=== PATIENT | male | born 1985 | race Caucasian/White ===

== ENCOUNTER 2018-01-23 22:59 | Emergency (ER) | payer MEDICAID, SELFPAY ==
[2018-01-23 23:00] VITALS: BP 152/99; PULSE 104; RESP 20; TEMP 37.1; O2SAT 97; BMI 50.3
--- NOTE | 2018-01-23 23:47 | ED.VISSUMM ---
- ER Visit Summary Date of Service: 01/23/18 Chief Complaint: Laceration History of Present Illness: The patient is a 32 M with no primary care physician. Reports that this evening he tripped and fell hit his head on a brick around the flower bed at home. No loss of consciousness. He is on any blood thinners. His tetanus is up-to-date. He denies any neck, back, extremity, or other injuries. Physical Examination: Vitals: Stable. Afebrile. Head: 7 cm laceration to the right side of his scalp that extends from his hairline posteriorly. No active bleeding. Neck: No vertebral tenderness. Full ROM without difficulty. Cleared by NEXUS criteria. Back: No vertebral tenderness. General: A&O x 3. NAD. Cardiovascular exam: Regular rate and rhythm, no murmur, rub or gallop. Respiratory exam: Chest nontender. No crepitus. Clear to auscultation bilaterally. No wheezes or stridor. Abdominal exam: Soft, nontender, nondistended, normal bowel sounds. No pain in RUQ or LUQ specifically. No peritoneal signs. Extremity: Atraumatic. No pain with range of motion. Emergency Department Course and Treatment: Patient was treated with ibuprofen. His wound was anesthetized and repaired. He tolerated it well. Treatment Plan: Patient be discharged instructions to follow-up with Dr. Daniel Carrillo in 10-14 days for staple removal. Return to the emergency department for any worsening symptoms. Disposition: To home in improved and stable condition. Impression: 1. Scalp laceration, 7 cm, repaired. Procedure note: Wound was cleansed with chlorhexidine soap. Anesthetized with 1% lidocaine without epinephrine. Copiously irrigated with normal saline. Wound was explored there is no foreign material present. It was closed with 8 jag. The patient tolerated it well. This note was generated with [employer] dictation software. It may contain incorrect words, spelling, and punctuation that were not noted in review of the chart prior to signing ED Disposition - Plan for ED Patient: Disposition: Home or Assisted Living Chief Complaint: Laceration Instructions: ED Laceration Scalp Stitch Or Stap Prescriptions: Oxycodone HCl/Acetaminophen [Percocet 5/325] 1 tablet PO Q6H PRN PRN 3 Days #12 tablet PRN Reason: Pain Referrals: Daniel De Dios MD [STAFF PHYSICIAN] - 10-14 Days suture removal
[2018-01-23] MEDS: oxyCODONE 5 MG Tablet PO (23:57)
[2018-01-23] MEDS: Ibuprofen 400 MG Tablet 800 MG PO (23:58)
[2018-01-24 00:01] VITALS: PULSE 96; RESP 14; O2SAT 98
== END 2018-01-24 00:01 | disposition home or self-care (01) ==
PROVIDERS: Emergency Provider Emergency Medicine
DX: S01.01XA Laceration without foreign body of scalp, initial encounter (principal); Z72.0 Tobacco use; Z79.899 Other long term (current) drug therapy; W01.198A Fall on same level from slipping, tripping and stumbling with subsequent striking against other object, initial encounter; Y93.89 Activity, other specified; Y92.007 Garden or yard of unspecified non-institutional (private) residence as the place of occurrence of the external cause; Y99.8 Other external cause status
CPT/HCPCS: 12002; 99283

== ENCOUNTER → 2018-02-15 16:19 | Outpatient (CLI) | payer MEDICAID, SELFPAY ==
[2018-02-15 17:45] LABS: Absolute Neutrophil Count 7.5 X10^3/uL (2.0-7.7); Basophil# 0.03 X10^3/uL; Basophil% 0.3 % (0-1); Eosinophil# 0.14 X10^3/uL; Eosinophils% 1.2 % (0-5); Hematocrit 46.8 % (40-54); Hemoglobin 15.2 g/dl (13.0-16.5); Mean Corp Hgb Conc 32.5 g/gl (32-36); Mean Corpuscular Hgb 27.9 pg (27.0-32.0); Mean Corpuscular Volume 85.9 fL (80-94); Mean Platelet Vol. 11.2 fl (6.2-12.0); Monocyte# 0.85 X10^3/uL; Monocyte% 7.6 % (0-10); Neutrophil % 66.7 % (47-70); Platelet Count 242 K/mm3 (150-450); RBC Distribution Width CV 13.4 % (11.6-14.6); RBC Distribution Width SD 41.9 fl (35.1-43.9); Red Blood Count 5.45 M/mm3 (4.6-6.2); White Blood Count 11.2 K/mm3 (4.4-11.0)
[2018-02-15 17:54] LABS: POSITIVE COUNT NO; POSITIVE DIFFERENTIAL NO; POSITIVE MORPHOLOGY NO
[2018-02-15 18:04] LABS: Hemoglobin A1c 5.1 % (4.2-6.3)
[2018-02-15 18:05] LABS: ALB/GLOB Ratio 0.9 RATIO (0.9-2.4); AST(SGOT) 25 U/L (15-37); Alanine Aminotransfer ALT/SGPT 56 U/L (16-61); Albumin, Serum 3.8 g/dL (3.2-5.0); Alkaline Phosphatase 132 U/L (45-117); Anion Gap 10 (5-15); BUN 17 mg/dL (7-18); BUN/Creat Ratio 23.5 RATIO (10-20); Calcium,Total 8.7 mg/dL (8.5-10.1); Chloride 106 mmol/L (98-107); Cholesterol 185 mg/dL (200); Creatinine, Serum 0.72 mg/dL (0.70-1.30); EST Glomerular Filtration Rate 131 mL/min (>60); Est Glom Filt Rate - Afr Amer 159 mL/min (>60); Globulin 4.1 g/dL (2.2-4.2); Glucose 82 mg/dL (74-106); High Density Lipoprotein 33 mg/dL; Potassium 4.6 mmol/L (3.5-5.1); Protein, Total 7.9 g/dL (6.4-8.2); Sodium Level 141 mmol/L (136-145); Triglycerides 260 mg/dL; Very Low Density Lipoprotein 52 mg/dL (5-40)
== END ==
PROVIDERS: Family Provider Family Medicine; PCP Family Medicine; Visit Provider Family Medicine
DX: K21.9 Gastro-esophageal reflux disease without esophagitis (principal); E66.9 Obesity, unspecified; Z83.3 Family history of diabetes mellitus
CPT/HCPCS: 36415; 80053; 80061; 83036; 84443; 85025

== ENCOUNTER → 2018-03-22 14:32 | Outpatient (CLI) | payer MEDICAID, SELFPAY | PROVIDERS: Family Provider Family Medicine; PCP Family Medicine; Visit Provider Family Medicine | DX: R06.02 Shortness of breath (principal) | CPT/HCPCS: 71046 ==

== ENCOUNTER → 2018-03-29 06:50 | Outpatient (CLI) | payer MEDICAID, SELFPAY ==
--- NOTE | 2018-03-29 12:55 | PFT_ITS ---
INTRODUCTION: The patient is a 33-year-old male that presents for pulmonary function testing secondary to a diagnosis of shortness of breath. Respiratory therapy reports good patient effort. Bronchodilators were used during testing. INTERPRETATION: Forced expiration spirometry demonstrates no evidence of a large airways obstructive ventilatory defect. There was no significant response to aerosolized bronchodilators. Spirograms are of good quality and plateau normally. Body plethysmography was performed and reveals a decreased TLC to 4.0 L, 70% of predicted, indicative of a mild restrictive ventilatory defect. The ERV is significantly reduced which may be secondary to an underlying body habitus effect. Diffusing capacity by single breath CO is mildly reduced at 60 % of predicted. IMPRESSION: These pulmonary function studies demonstrate the presence of a mild restrictive ventilatory defect with a symmetric reduction in diffusing capacity and reduced ERV, which may be suggestive of an underlying body habitus effect. Clinical correlation is recommended.
== END ==
PROVIDERS: Family Provider Family Medicine; PCP Family Medicine; Visit Provider Family Medicine
DX: R06.02 Shortness of breath (principal)
CPT/HCPCS: 94060; 94726; 94729

== ENCOUNTER → 2018-12-14 | Outpatient (CLI) | payer MEDICAID, SELFPAY ==
--- NOTE | 2018-12-14 14:00 | LES_PTH ---
PATIENT: NAOMI AHUMADA LOC: [facility] U#:[id number] AGE/SX: 33/M ROOM: RE12/14/[address]: Dr. Kingston Goldberg MD : 1985 BED: DIS: 12/14/2018 SPEC #: [id number] RECD: 12/14/18 15:27 STATUS: EUGENIO SERGO #: [id number] SHAI: 12/14/18 14:[address]: Kingston Goldberg DEPT: SURGICAL PATHOLOGY RECD BY: Marlo Bui Tissues: Skin, NOS Procedures: Surgery Specimen Level IV HEADER OPERATION: Excision / mole removal PRE-OP DIAGNOSIS: Neoplasm TISSUE SUBMITTED: Neoplasm / mole removal MICROSCOPIC DIAGNOSIS Mole removal, not further specified, biopsy: Consistent with dermatofibroma. AM:maria elena 12/18/18 MICROSCOPIC DESCRIPTION Slides are reviewed. GROSS DESCRIPTION Received is one container labeled with the patient's name and not further designated. The specimen consists of one irregular fragment of valdez soft tissue that measures 0.6 x 0.5 x 0.2 cm. The specimen is bisected and totally submitted in one cassette. / AM:maria elena 12/15/18 TC:5 [facility]: [id number]
== END | disposition home or self-care (01) ==
PROVIDERS: Family Provider Family Medicine; PCP Family Medicine; Referring Provider Family Medicine; Visit Provider Family Medicine
DX: D48.9 Neoplasm of uncertain behavior, unspecified (principal)
CPT/HCPCS: 88304; 88305

== ENCOUNTER 2019-02-08 17:22 | Emergency (ER) | payer MEDICAID, SELFPAY ==
[2019-02-08 17:23] VITALS: BP 159/109; PULSE 90; RESP 16; TEMP 36.8; O2SAT 98; BMI 53.0
[2019-02-08 17:36] VITALS: BP 159/109; PULSE 90; RESP 18; TEMP 36.8; O2SAT 99
[2019-02-08] MEDS: oxyCODONE 5 MG Tablet PO (18:43)
--- NOTE | 2019-02-08 18:44 | ED.RN ---
PER DR. BARKSDALE SEPSIS SCREEN COMPLETED.
--- NOTE | 2019-02-08 18:47 | ED.VISSUMM ---
- ER Visit Summary Date of Service: 02/08/19 Chief Complaint: Left ear pain History of Present Illness: The patient is a 34 M presenting with left ear pain. Patient states this started earlier in the week. He was seen at urgent care on Tuesday and was started on Augmentin for ear infection. He was seen by Dr. Christopher in follow-up yesterday. He states he was advised to continue the Augmentin until complete and was given a course of amoxicillin to take when the Augmentin is finished. He has been taking ibuprofen at home. He complains of pain in his left ear. He denies fever. He has had drainage from his ear. He states he had drainage yesterday when he was seen by the ENT and they were able to suction the drainage. Physical Examination: Vitals are stable. Patient is afebrile. Alert no acute distress. HEENT exam pain with movement of the left tragus. White serous drainage in the left ear canal. Unable to visualize TM. No mastoid tenderness Neck is supple. No meningismus Lungs are clear and equal bilaterally. Heart is regular rate and rhythm. Extremities are unremarkable. Skin is warm and dry. Remainder of exam is unremarkable. Emergency Department Course and Treatment: Patient was given OxyIR. Discussed with Dr. Harper. Patient will be started on Ciprodex drops. He is given a prescription for Percocet. Culture was sent of otorrhea. Advised to follow-up with Dr. Chowdary. Advised return to ED for worsening complaints. Disposition: Discharge home Impression: Left otitis externa, otitis media This note was generated with [employer] dictation software. It may contain incorrect words, spelling, and punctuation that were not noted in review of the chart prior to signing ED Disposition - Plan for ED Patient: Instructions: RUPTURED TM, Infected (Adult) Prescriptions: Ciprofloxacin HCl/Dexameth [Ciprodex Otic Suspension] 4 drp OTIC (EAR) BID 7 Days #1 bottle Prescription Printed Oxycodone HCl/Acetaminophen [Percocet 5/325] 1 tab PO Q6H PRN PRN 3 Days #12 tab PRN Reason: Pain Prescription Printed Referrals: Korey Chowdary MD [STAFF PHYSICIAN] - Kingston Goldberg MD [Primary Care Provider] -
--- NOTE | 2019-02-08 19:32 | ED.DEP ---
ED Disposition - Plan for ED Patient: Instructions: RUPTURED TM, Infected (Adult) Prescriptions: Ciprofloxacin HCl/Dexameth [Ciprodex Otic Suspension] 4 drop OTIC BID 7 Days #1 bottle Oxycodone HCl/Acetaminophen [Percocet 5/325] 1 tablet PO Q6H PRN PRN 3 Days #12 tablet PRN Reason: Pain Referrals: Kingston Goldberg MD [Primary Care Provider] - Korey Chowdary MD [STAFF PHYSICIAN] -
[2019-02-08 20:04] VITALS: BP 148/78; PULSE 92; RESP 16; O2SAT 98
== END 2019-02-08 20:05 | disposition home or self-care (01) ==
LOC: ED 18:51
PROVIDERS: Emergency Provider Emergency Medicine; Family Provider Family Medicine; PCP Family Medicine
DX: H60.92 Unspecified otitis externa, left ear (principal); H66.92 Otitis media, unspecified, left ear; Z79.2 Long term (current) use of antibiotics; K21.9 Gastro-esophageal reflux disease without esophagitis; Z72.0 Tobacco use; Z79.899 Other long term (current) drug therapy
CPT/HCPCS: 87070; 87077; 87186; 87205; 99283

== ENCOUNTER 2019-03-23 12:40 | Outpatient (RCR) | payer MEDICAID, SELFPAY | END 2019-03-23 12:40 | disposition home or self-care (01) | LOC: PT 12:40 | PROVIDERS: Family Provider Family Medicine; PCP Family Medicine; Referring Provider Family Medicine; Visit Provider Family Medicine | DX: R69 Illness, unspecified (principal) ==

== ENCOUNTER 2019-04-03 13:03 | Outpatient (RCR) | payer MEDICAID, SELFPAY ==
--- NOTE | 2019-04-03 13:56 | HP.PTEVAL_ITS ---
Patient's Visit Information NAOMI AHUMADA is a 34 year old M referred to Physical Therapy by Kingston Goldberg MD with a diagnosis of CEREBRAL PALSY,CHRONIC ANKLE PAIN. Date of Evaluation: 04/03/19 Physical Therapist: Damián Connell, PT, Cert MDT, OCS - Visit Plan Frequency: 1 VISIT Plan: PT EVAL ONLY. RECOMMEND POWER W/C DUE TO UNABLE TO WALK SAFELY FOR SHORT DISTANCES < 20 ',POOR STRENGTH ROM BLE AND UE WITH WEAKNESS FROM ANKLE FRACTURE WITH FUSION RIGHT ANKLE AND CP,POOR ENDURANCE, UNSAFE TRANSFERS - Subjective Findings: This 34 y/o male presents to physical therapy with cerebral palsey ,chronic ankle pain for electric wheelchair. Patient has had chronic ankle pain with h/o right ankle fracture s/p fusion of ankle x3 last surgery about 18 months ago. Patient also has h/o left ankle fracture. Pateint has had CP since . Patient is unable to ambulate short distance 2-ft . Patient wiegths 290 # , ht 5'2 . Patient has pain ankle with walkin 8/10. Patient c/o parathesia in extremities. Patient lives in apartment. Patient requires assist with transfers in TUB . Patient needs assist LE dressing. Patient with weakness impaired moblity with gait will benifit from electric W/C.Patient current electric w/c is broke not safe. SOCIAL: [employer]ilfriend. VOCATION: disablity - Pain Bilateral Ankle Pain Intensity (Out of 10): 8 Bilateral Knee Pain Intensity (Out of 10): 3 Pain Intensity Range: 10 Bilateral Wrist Pain Intensity (Out of 10): 6 Pain Intensity Range: 10 Bilateral Shoulder Pain Intensity (Out of 10): 4 Pain Intensity Range: 10 - Objective POSTURE: posterior pelvic tilt,rounded shoulders. TRANSFERS: sit-stand mod no safe. BED MOBLITY: supine -sit mod assist. GAIT: ambulated few steps with fww. BALANCE: fair- with fww. AROM: supine knee flex 5-95 degrees ,hip flexion 85 degrees ,abd 20 degrees. TONE: spascitity LE. MMT: quads 3-/5 ,hip flex/abd 2/5,hams 3-/5,ankle R 0/5, L 3/5. BUE: AROM WFL. MMT: BUE 4-/5. FLEXABLITY: hams severe tight - Goals Goal 1:: RECOMMEND POWER W/C DUE TO IMPAIRED MOBLITY. Goal Time Frame: 1 VISIT - Rehabilitation Potential Physical Therapy Diagnosis: Patient has multile comorbities along with CP with decrease safe gait with limited distance painand strength ,transfers, decrease LE strength ,poor LE ROM and current electric w/c broke and is not safe for patient. Rehabilitation Potential: Poor - Anticipated Interventions Patient/Client Instruction: Educate patient on: Condition, Plan of Care For the Purpose of:: Other Other: POWER W/C Thank you for the opportunity to evaluate your patient. For Medicare and Medicare HMO plans, please review the plan of care and approve it. It will need to be FAXED BACK to us at [phone] for Medicare purposes. For Medicare only, by signing this I certify the plan of care. Please let me know if there are questions or concerns regarding this plan of care. Physician Signature: Date:
== END 2019-04-03 19:00 | disposition home or self-care (01) ==
LOC: PT 13:03
PROVIDERS: Family Provider Family Medicine; PCP Family Medicine; Visit Provider Family Medicine
DX: G80.9 Cerebral palsy, unspecified (principal); M25.579 Pain in unspecified ankle and joints of unspecified foot; G89.29 Other chronic pain
CPT/HCPCS: 97110

== ENCOUNTER → 2019-07-09 13:58 | Outpatient (CLI) | payer MEDICAID, SELFPAY | PROVIDERS: Family Provider Family Medicine; PCP Family Medicine; Referring Provider Nurse Practitioner Family; Visit Provider Nurse Practitioner Family | DX: Z00.00 Encounter for general adult medical examination without abnormal findings (principal) ==

== ENCOUNTER → 2019-08-16 | Outpatient (CLI) | payer MEDICAID, SELFPAY | END | disposition home or self-care (01) | LOC: LABSPEC 14:35 | PROVIDERS: PCP Family Medicine; Referring Provider Family Medicine; Visit Provider Family Medicine | DX: R19.7 Diarrhea, unspecified (principal) | CPT/HCPCS: 87177; 87209; 87493 ==

== ENCOUNTER 2020-03-03 13:15 | Emergency (ER) | payer MEDICAID, SELFPAY ==
[2020-03-03 13:16] VITALS: BP 151/95; PULSE 78; RESP 15; TEMP 36.7; O2SAT 95; BMI 51.2
--- NOTE | 2020-03-03 13:33 | RAD_ITS ---
STUDY: X-RAY - LEFT FOOT CLINICAL: Male, 35 years old. INCREASED LEFT FOOT PAIN. UNKNOWN CAUSE TECHNIQUE: 3 view(s) of the foot. COMPARISON: None. FINDINGS: Normal talus, calcaneus, and tarsal bones. Normal visualized subtalar, talonavicular, calcaneocuboid, tarsal and tarsometatarsal articulations. Normal metatarsi. There is pes planus. Normal metatarsophalangeal joint of the great toe. Normal tibial and fibular sesamoid bones. Normal interphalangeal joint of the great toe. Normal phalanges of the great toe. Normal second through fifth metatarsophalangeal joints. Normal interphalangeal joints and phalanges of the lesser toes. The soft tissue structures are unremarkable. RAD/Foot min 3 Views IMPRESSION: No demonstrated fracture or suspicious osseous lesion No significant arthrosis Pes planus Electronically Signed: Aaron Cardona MD at 15:05 EDT , Service support ,
[2020-03-03] MEDS: oxyCODONE 5 MG Tablet PO (14:17)
--- NOTE | 2020-03-03 14:27 | ED.DCSUM_ITS ---
- ER Visit Summary Date of Service: 03/03/20 Chief Complaint: Left foot pain History of Present Illness: The patient is a [address] Barboza. His sweet pickled fruit maker is Dr. Hameed in [place]. 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 He is supposed to have a tendon release from his left Achilles but has not been scheduled at this time. Patient reports that he has chronic left foot and ankle pain that increased 2 days ago. States that the stabbing pain is 1010 at worst 9-10 currently. Is worsened by twisting or weightbearing. Is relieved by ibuprofen. He denies any numbness or weakness. He denies any fall or MVA. However, he reports that he has been more active than usual because he is moving. Physical Examination: Vitals: Stable. Afebrile. General: Well-nourished and well-developed. Head: Normocephalic atraumatic. Neck: Supple, no lymphadenopathy. No JVD. Nontender. Cardiovascular: Regular rate and rhythm. No murmurs. Respiratory: No respiratory distress. Clear to auscultation bilaterally. Abdominal: Soft, nontender, nondistended, normal bowel sounds. No guarding, rebound, or peritoneal signs. Back: Nontender. Extremities: Moderate tenderness palpation to the anterior surface of his right foot just distal to the ankle crease itself. He is neurovascular intact distal to this. There is no contusion or soft tissue swelling no edema. Skin: Normal color, no rash. Neurologic: Alert and oriented ?3. Cranial nerves II through XII are intact. Normal strength and sensation. Psych: Normal affect. Test Results: Left foot x-ray shows chronic changes. Emergency Department Course and Treatment: An OARRS report was obtained which was negative. The patient was given oxycodone p.o. Treatment Plan: Patient will be discharged with a prescription for 12 Percocet and instructed to follow-up with his sweet pickled fruit maker soon as possible. Return to the emergency department for any worsening symptoms. Disposition: To home in improved and stable condition. Impression: 1. Left foot pain, acute on chronic. This note was generated with [employer] software. It may contain incorrect words, spelling, and punctuation that were not noted in review of the chart prior to signing ED Disposition - Plan for ED Patient: Disposition: Home or Assisted Living Instructions: Treating Arthritis in the Foot Prescriptions: Oxycodone HCl/Acetaminophen [Percocet 5/325] 1 tab PO Q6H PRN PRN 3 Days #12 tab PRN Reason: Pain Prescription Printed Referrals: Kingston Goldberg MD [Primary Care Provider] - Additional Instructions: Follow-up with your sweet pickled fruit maker as soon as possible.
[2020-03-03 16:01] VITALS: PULSE 79; RESP 15; O2SAT 99
== END 2020-03-03 16:02 | disposition home or self-care (01) ==
LOC: ED 13:55
PROVIDERS: Emergency Provider Emergency Medicine; PCP Family Medicine
DX: M79.672 Pain in left foot (principal); G89.29 Other chronic pain; G80.9 Cerebral palsy, unspecified; Z72.0 Tobacco use
CPT/HCPCS: 73630; 99283

== ENCOUNTER → 2020-03-31 | Outpatient (CLI) | payer MEDICAID, SELFPAY ==
[2020-03-03 13:16] VITALS: BMI 51.2
== END | disposition home or self-care (01) ==
LOC: SL 21:52
PROVIDERS: PCP Family Medicine; Visit Provider Family Medicine
DX: G47.30 Sleep apnea, unspecified (principal)
CPT/HCPCS: 95810

== ENCOUNTER → 2020-04-01 | Outpatient (CLI) | payer MEDICAID, SELFPAY ==
[2020-03-03 13:16] VITALS: BMI 51.2
[2020-04-01 17:43] LABS: Absolute Lymphocyte Count 2.03 X10^3/uL (0.83-4.51); Absolute Neutrophil Count 6.1 X10^3/uL (2.0-7.7); Basophil# 0.04 X10^3/uL; Basophil% 0.4 % (0-1); Eosinophil# 0.11 X10^3/uL; Eosinophils% 1.2 % (0-5); Hematocrit 46.1 % (40-54); Hemoglobin 15.2 g/dL (13.0-16.5); Lymphocyte # 2.03 X10^3/ul (4.0); Lymphocyte % 22.6 % (19-41); Mean Corpuscular Hgb 27.9 pg (27.0-32.0); Mean Corpuscular Volume 84.6 fL (80-94); Mean Platelet Vol. 11.5 fl (6.2-12.0); Monocyte# 0.71 X10^3/uL; Monocyte% 7.9 % (0-10); NRBC Flagged by Analyzer 0 % (0-5); Neutrophil # 6.06 X10^3/uL (2.7-7.7); Neutrophil % 67.6 % (47-70); Platelet Count 264 K/mm3 (150-450); RBC Distribution Width CV 13.1 % (11.6-14.6); Red Blood Count 5.45 M/mm3 (4.6-6.2)
[2020-04-01 18:07] LABS: ALB/GLOB Ratio 0.9 RATIO (0.9-2.4); AST(SGOT) 24 U/L (15-37); Alanine Aminotransfer ALT/SGPT 54 U/L (16-61); Albumin, Serum 3.9 g/dL (3.2-5.0); Alkaline Phosphatase 104 U/L (45-117); Anion Gap 8 (5-15); BUN 12 mg/dL (7-18); Calcium,Total 9.1 mg/dL (8.5-10.1); Chloride 107 mmol/L (98-107); Cholesterol 214 mg/dL (200); EST Glomerular Filtration Rate 115 mL/min (>60); Est Glom Filt Rate - Afr Amer 139 mL/min (>60); Globulin 4.4 g/dL (2.2-4.2); Glucose 86 mg/dL (74-106); High Density Lipoprotein 30 mg/dL; Potassium 4.5 mmol/L (3.5-5.1); Protein, Total 8.3 g/dL (6.4-8.2); Sodium Level 139 mmol/L (136-145); Triglycerides 234 mg/dL; Very Low Density Lipoprotein 47 mg/dL (5-40)
== END | disposition home or self-care (01) ==
LOC: MFPLAB 15:10
PROVIDERS: PCP Family Medicine; Referring Provider Family Medicine; Visit Provider Family Medicine
DX: E66.01 Morbid (severe) obesity due to excess calories (principal); Z72.0 Tobacco use
CPT/HCPCS: 36415; 80053; 80061; 85025

== ENCOUNTER 2020-04-22 12:20 | Emergency (ER) | payer MEDICAID, SELFPAY ==
[2020-04-14 07:49] VITALS: BMI 51.2
[2020-04-22 12:21] VITALS: BP 123/40; PULSE 84; RESP 20; TEMP 36.4; O2SAT 98; BMI 53.0
--- NOTE | 2020-04-22 12:51 | ED.VISSUMM ---
- ER Visit Summary Date of Service: 04/22/20 Chief Complaint: Left ankle pain History of Present Illness: The patient is a 35 M who presents with left ankle pain that became worse today. Patient has a history of cerebral palsy. Patient states the pain has gradually gotten worse. Patient denies any trauma or injury. Patient states the pain is worse with ambulation. Patient describes the pain as burning but sharp at times. Patient denies any paresthesias or weakness. Patient states he saw his orthopedic surgeon who did x-rays and told him he needed to see a joint specialist and have his ankle replaced. Physical Examination: Vital signs are stable. Patient is afebrile. Patient is in no acute distress. Musculoskeletal exam reveals tenderness over the medial aspect of the left ankle. There is no ecchymosis or deformity. There is no edema noted. There is no tenderness over the proximal fibula. There is no tenderness over the fifth metatarsal. Range of motion was limited in all motion secondary to pain. Pedal pulses are equal bilaterally. Sensation was intact to light touch in all digits. Capillary refill was less than 2 seconds in all digits. Emergency Department Course and Treatment: Patient was given injection of morphine here. Patient was given a prescription for short course of Percocet. Patient was instructed to follow-up with his primary care physician and orthopedic surgeon. Patient was also given a walking boot. Patient was instructed to ice and elevate the left ankle. Patient states he has been using Voltaren cream with minimal relief. Patient was instructed to continue using the Voltaren cream. Patient understood and was agreeable with the plan. All questions were answered. Disposition: Discharge home Impression: Left ankle pain This note was generated with [employer] dictation software. It may contain incorrect words, spelling, and punctuation that were not noted in review of the chart prior to signing ED Disposition - Plan for ED Patient: Disposition: Home or Assisted Living Diagnosis: Left ankle pain Instructions: ED JOINT PAIN Prescriptions: Oxycodone HCl/Acetaminophen [Percocet 5/325] 1 tab PO Q6H PRN PRN 3 Days #12 tab PRN Reason: Pain Prescription Printed Referrals: Kingston Goldberg MD [Primary Care Provider] - 3-5 Days Joseph Bowers MD [STAFF PHYSICIAN] - 5-7 Days
[2020-04-22] MEDS: Morphine 4 MG/ML Syringe IM (12:53)
[2020-04-22 13:17] VITALS: BP 140/113; PULSE 79; RESP 16
== END 2020-04-22 13:20 | disposition home or self-care (01) ==
LOC: ED 12:53
PROVIDERS: Emergency Provider Emergency Medicine; PCP Family Medicine
DX: M25.572 Pain in left ankle and joints of left foot (principal); G80.9 Cerebral palsy, unspecified; K21.9 Gastro-esophageal reflux disease without esophagitis; Z72.0 Tobacco use
CPT/HCPCS: 96372; 99283

== ENCOUNTER 2020-08-05 06:44 | Day surgery (SDC) | payer MEDICAID, SELFPAY ==
[2020-07-24 09:20] VITALS: BMI 55.5
[2020-07-28 12:41] VITALS: BMI 53.0
[2020-08-05] VITALS (7 sets, daily range): BP systolic 111–125; BP diastolic 65–91; PULSE 67–82; RESP 16–18; TEMP 36.5–37.1; O2SAT 96–98; BMI 56.2
--- NOTE | 2020-08-05 | IMM_PTH ---
PATIENT: NAOMI AHUMADA LOC: [facility] U#:[id number] AGE/SX: 35/M ROOM: RE08/05/[address]: Dr. Ilya Jeffers MD : 1985 BED: DIS: 08/05/2020 SPEC #: [id number] RECD: 08/06/20 13:55 STATUS: EUGENIO REArvind #: [id number] SHAI: 08/05/20 00:[address]: Ilya Jeffers DEPT: IMMUNOHISTOCHEMISTRY RECD BY: Jocelyne Hill ENTERED: 08/06/20 13:55 SP TYPE: IMMUNO OTHR DR: Dr. Kingston Goldberg MD Tissues: A - Stomach, NOS Procedures: H Pylori (initial) PHYSICIAN & INSTITUTION [place] [id number] SPECIMEN INFORMATION: Tissue Source: A - Antral biopsy Clinical Info: GERD Specimen Number: [id number] CPT code: 84990 METHODOLOGY: Deparaffinized sections of prefer/formalin-fixed tissue or PAP/DQ stained slides are incubated with monoclonal/polyclonal antibodies/oligonucleotide probes. Localization is made via biotin free immunoperoxidase method. Appropriate controls are performed and reacted as expected. Results on target cell population are indicated in the following table: RESULTS: ANTIBODY / CLONE RESULT Block A H Pylori (polyclonal) negative These tests were developed and their performance characteristics determined by [facility]. They may not have been cleared or approved by the U.S. Food and Drug Administration. The FDA has determined that such clearance or approval is not necessary. INTERPRETATION: A. Antral biopsy: Negative for Helicobacter pylori organisms. ENID:maria elena 08/07/2020
--- NOTE | 2020-08-05 07:30 | HP.PCM_ITS ---
Problem List (1) GERD (gastroesophageal reflux disease) Status: Acute Qualifiers: History of Present Illness Date of Admission: 08/05/20 The patient is a 35 year old M who presents today for a esophagogastroduodenoscopy Intake Visit Reasons: PHONE VISIT/ EGD, GERD Chief Complaint: GERD Recruitment Internship Required: No Is patient in pain?: No Allergies No Known Allergies Allergy (Verified 07/24/20 09:20) Medications Ibuprofen [Motrin] 800 mg PO TID 02/08/19 [History Confirmed 07/24/20] Omeprazole 20 mg PO DAILY 02/08/19 [History Confirmed 07/24/20] Propranolol HCl [Propranolol HCl ER] 80 mg PO DAILY 02/08/19 [History Confirmed 07/24/20] Sertraline HCl 100 mg PO DAILY 02/08/19 [History Confirmed 07/24/20] lactobacillus combination no.8 3 billion cell capsule 3,000 mmu cells PO DAILY 07/24/20 [History Confirmed 07/24/20] PFSH Medical History Restrictive lung disease (Acute) Anxiety and depression (Acute) GERD (gastroesophageal reflux disease) (Acute) Hemorrhoid (Acute) Irritable bowel syndrome (IBS) (Acute) Sleep apnea (Acute) Surgical History History of ankle fusion (Acute) History of tonsillectomy and adenoidectomy (Acute) History of bilateral carpal tunnel release (Acute) History of tympanoplasty (Acute) History of eye surgery (Acute) History of heart valve repair (Acute) History of esophagogastroduodenoscopy (EGD) (Acute ~2013) History of colonoscopy (Acute ~2019) Family History Mother Cancer kidney Hypertension Diabetes Father Diabetes Hypertension Social History (Updated 07/24/20 @ 09:[address] Ilya Jeffers MD) Smoking Status: Current some day smoker HPI HPI Chief Complaint: GERD Details: Patient was informed that this visit will be billed to patient. This visit was conducted during - pandemic. NAOMI AHUMADA, is a 35 M who was contacted via telephone for consultation regarding intractable gastroesophageal reflux disease. The patient was at home on his telephone and I was in the office on [employer]. He is referred by Dr Kingston Goldberg. 35-year-old gentleman. He is recently had increased trouble with heartburn reflux disease. He is currently being managed with omeprazole therapy and he has been on that for an extended period of time. There were hopes that that could be decreased. He does have chronic anxiety. He is on appropriate medication. He does continue to smoke cigarettes. He is morbidly obese with a BMI of 55.5. He is just recently undergone a sleep apnea study with results pending. He states that he has had a remote previous upper endoscopy without complication. He denies bright red blood per rectum or melena. Denies any current abdominal pain. There is no evidence on his laboratory to suggest anemia. ROS Const Constitutional: No anorexia, body ache, chills, excessive sweating, fatigue, fever(s), frequent falls, headache(s), decreased energy, malaise, night sweats, snoring, weakness, weight change, sleep problems, abnormal sleep pattern, change in appetite or other Eyes Eyes: No blurry vision, change in vision, double vision, discharge, dry eyes, bulging eyes, floaters, visual disturbances, eye pain, light sensitivity, spots in vision, tunnel vision or other ENT ENT: No abnormal hearing, ear pain, ear discharge, ear pressure, hearing loss, tinnitus, dizziness/vertigo, balance problems, nosebleed/epistaxis, nasal congestion, nasal obstruction, nose pain, sinus pressure, sinus pain, nasal discharge, post nasal drip, headache(s), facial pain, dental pain, dry mouth, difficulty swallowing, bad breath, hoarseness, lip swelling, mouth lesions, mouth pain, neck pain, sore throat, tongue swelling, throat swelling or other Resp Respiratory: Positive for other (asthma, sleep apnea ); no cough, change in phlegm color, chest congestion, excessive phlegm production, hemoptysis, pain on inspiration, shortness of breath, pain with cough, snoring, stridor or wheezing Cardio Cardiology: No chest pain at rest, chest pain with exertion, leg pain with exertion, excessive sweating, shortness of breath, dyspnea on exertion, generalized swelling, irregular heart rhythm, lightheadedness, orthopnea, radiating jaw, neck or arm pain, fast heart rate, slow heart rate, palpitations or other Gastro GI: Positive for diarrhea, heartburn and other (ibs); no abdominal pain, belching, bloating, change in bowel habits, change in stool character, coffee ground emesis, constipation, cramping, difficulty swallowing, feeling full early, excessive flatus, incontinent of stools, Vomiting blood/hematemesis, blood in stool, loose stools, Black,tarry stools, nausea/dyspepsia, pain with swallowing or vomiting Musc Musculoskeletal: No abnormal walking, neck pain, numbness or tingling Skin Skin: No itching Neuro Neurology: No abnormal walking, abnormal hearing, abnormal movements, abnormal speech, behavioral changes, confusion, unsteady gait/balance, dizziness, weakness, frequent falls, headache(s), lack of coordination, loss of vision, memory loss, numbness, tingling, visual disturbances, restless legs, fainting, tremor(s) or other Psych Psychiatric: No abnormal sleep pattern, No lack of enjoyment, Positive for anxiety, No behavioral changes, No change in appetite, No confusion, Positive for depression, No difficulty concentrating, No hopelessness, No irritability, No memory loss, No mood swings, No panic attacks, No paranoia, No Thoughts of harming yourself/Others, No hallucinations, No other Endo Endocrine: No excessive sweating, fatigue or other Aller/Imm Allergy/Immunologic: No food intolerance, itchy eyes, lip swelling, seasonal allergy symptoms, throat swelling, tongue swelling, hives, wheezing or other [place]/Lymp Hematologic/Lymphatic: No easy bleeding, easy bruising, enlarged lymph nodes or other Exam Details: Details:: Exam was limited due to phone visit with no video. Quality Reporting Medication Reconciliation ([facility] 68) ibuprofen 800 mg PO TID lactobacillus combination no.8 (Adult Probiotic) 3,000 mmu cells PO DAILY omeprazole 20 mg PO DAILY propranolol ER 80 mg PO DAILY sertraline 100 mg PO DAILY Tobacco Screening ([facility] 138) Smoking Status: Current some day smoker Assessment & Plan Problems 1. Gastroesophageal reflux disease, unspecified whether esophagitis present K21.9 Plan I had an extensive discussion with the patient regarding treatment options. I have strongly encouraged the patient to cease tobacco. We have recommended head of bed elevation. I recommended not eating within 2 hours of going to bed. Advised avoiding alcohol. I reviewed his medication noting that he is on ibuprofen therapy. He claims this is for arthritis. I advised him that that can be harsh on the stomach he might consider converting to acetaminophen if feasible. I propose for him a esophagogastroduodenoscopy with possible biopsy or polypectomy as indicated. He is aware of the technique, benefit, risk, alternatives. He has sleep apnea and morbid obesity. I anticipate monitored anesthesia care to assist. He has had an opportunity to ask and have questions answered. If severe reflux findings are identified then 1 recommendation for the patient would be to consider bariatric surgery for a combined bariatric procedure and reflux procedure. Appreciate the opportunity of assisting with her surgical care Copy: Dr Kingston Jeffers M.D., F.A.C.S. Orders Orders: EGD Today Coding Level of Care Code Level 2 Telephone Diagnoses Gastroesophageal reflux disease, unspecified whether esophagitis present K21.9 ??Esophagitis presence: esophagitis presence not specified Past Medical History Medical History: Medical History (Last Reviewed 07/28/20 @ 13:02 by Simi Chu HIGH SCHOOL VICE PRINCIPAL, HIGH SCHOOL VICE PRINCIPAL-C) Restrictive lung disease (Acute) J98.4 Anxiety and depression (Acute) F41.9, F32.9 GERD (gastroesophageal reflux disease) (Acute) K21.9 Hemorrhoid K64.9 Irritable bowel syndrome (IBS) K58.9 Sleep apnea G47.30 Allergies No Known Allergies Allergy (Verified 07/31/20 12:05) Home Medications: Ambulatory Orders Medication Instructions Recorded Ibuprofen [Motrin] 800 mg PO TID 02/08/19 Omeprazole 20 mg PO DAILY 02/08/19 Propranolol HCl [Propranolol HCl 100 mg PO DAILY 02/08/19 ER] Sertraline HCl 150 mg PO DAILY 02/08/19 lactobacillus combination no.8 3 3,000 mmu cells PO DAILY 07/24/20 billion cell capsule Surgical History: Surgical History (Last Reviewed 07/28/20 @ 13:02 by Simi Chu HIGH SCHOOL VICE PRINCIPAL, HIGH SCHOOL VICE PRINCIPAL-C) History of ankle fusion (Acute) Z98.1 History of tonsillectomy and adenoidectomy (Acute) Z98.890 History of bilateral carpal tunnel release (Acute) Z98.890 History of tympanoplasty (Acute) Z98.890 History of eye surgery (Acute) Z98.890 History of heart valve repair (Acute) Z98.890 History of esophagogastroduodenoscopy (EGD) (Acute) Onset Date: ~2013 Z98.890 History of colonoscopy Onset Date: ~2018 Z98.890 Smoking Status: Current every day smoker Tobacco Use: Cigarettes VTE Information - Inpt Only VTE Present on Admission: No - Physical Exam Vitals/I&O's: Vital Signs Temp Pulse Resp BP Pulse Ox 98.7 F 67 16 125/68 H 97 08/05/20 07:03 08/05/20 07:03 08/05/20 07:03 08/05/20 07:03 08/05/20 07:03 Oxygen Delivery Method Room Air Weight: 307 lb 12.245 oz Body Mass Index (BMI) 56.2 General: Alert, Oriented x3, Cooperative, No apparent distress HEENT: Atraumatic Oral: Moist Mucosa Lungs: Clear to auscultation, Normal air movement Cardiovascular: Regular rate, Regular Rhythm Abdomen: Soft, Non Tender Psych/Mental Status: Normal Affect Microbiology Past 72 Hours 08/04/20 11:33 Interface Orders SARS-CoV-2 Antigen (Rapid) - Final Assessment/Plan All Active Problems (Last Reviewed 07/28/20 @ 13:02 by Simi Chu HIGH SCHOOL VICE PRINCIPAL, HIGH SCHOOL VICE PRINCIPAL- C) History of ankle fusion (Acute) History of tonsillectomy and adenoidectomy (Acute) History of bilateral carpal tunnel release (Acute) History of tympanoplasty (Acute) History of eye surgery (Acute) History of heart valve repair (Acute) Restrictive lung disease (Acute) Anxiety and depression (Acute) GERD (gastroesophageal reflux disease) (Acute) History of esophagogastroduodenoscopy (EGD) (Acute ~2013) MOOK (obstructive sleep apnea) (Acute) 35-year-old gentleman with gastroesophageal reflux disease. Plan to proceed with a esophagogastroduodenoscopy with possible biopsy or polypectomy as indicated. The patient is aware of the technique, benefit, risk, alternatives. He has had an opportunity to ask and have questions answered. We will proceed as noted. Ilya Jeffers M.D., F.A.C.S. Procedure Criteria Procedure Type: Elective COVID Risk Discussion: The surgeon/proceduralist and patient have discussed in detail the risk of exposure to and/or potential harm posed by the COVID-19 virus with having a surg melquiades/procedure at this time versus the risk of delaying the surgery/procedure. It is not possible to know either the risk of delaying the surgery or procedure or chance of getting an infection with perfect accuracy, but a joint decision was made between the patient and the surgeon/proceduralist to proceed at this time with the scheduled surgery/procedure as indicated on the consent form.
--- NOTE | 2020-08-05 07:45 | EGD_PTH ---
PATIENT: NAOMI AHUMADA LOC: EN U#:[id number] AGE/SX: 35/M ROOM: RE08/05/[address]: Dr. Ilya Jeffers MD : 1985 BED: DIS: 08/05/2020 SPEC #: [id number] RECD: 08/05/20 12:01 STATUS: EUGENIO SERGO #: [id number] SHAI: 08/05/20 07:[address]: Ilya Jeffers DEPT: SURGICAL PATHOLOGY RECD BY: Sarah Decker ENTERED: 08/05/20 12:46 SP TYPE: EGD BIOPSY TC DR: Dr. Kingston Goldberg MD Tissues: A - Gastric mucous membrane B - Esophagus, NOS Procedures: Special Stain Group II Surgery Specimen Level IV Alcian Blue/PAS (control) HEADER OPERATION: EGD ([facility] – [place] PRE-OP DIAGNOSIS: GERD TISSUE SUBMITTED: A - Antral biopsy, B - Distal esophagus biopsy MICROSCOPIC DIAGNOSIS A. Antral biopsy: Mild gastritis. See microscopic description. B. Distal esophagus, biopsy: Fragments of gastroesophageal mucosa with mild chronic inflammation. Intestinal metaplasia (goblet cell metaplasia) not identified. See comment. ENID:maria elena 08/06/2020 COMMENT B. Alcian blue/PAS stain with matched control is used in the evaluation of the specimen. MICROSCOPIC DESCRIPTION Slides are reviewed. A. The specimen shows fragments of gastric mucosa with chronic inflammatory cell infiltrates in the lamina propria consisting of lymphocytes and plasma cells, consistent with mild chronic gastritis. GROSS DESCRIPTION A - Received in fixative is one container labeled with the patient's name and designated antral biopsy. The specimen consists of one irregular fragment of light valdez soft tissue that measures 0.3 x 0.3 x 0.1 cm. The specimen is totally submitted in one cassette. B - Received in fixative is one container labeled with the patient's name and designated distal esophagus biopsy. The specimen consists of multiple irregular fragments of light valdez soft tissue that in aggregate measure 0.6 x 0.4 x 0.1 cm. The specimen is totally submitted in one cassette. / ENID:maria elena 08/05/20 TC:3 CPT: 70923 x2, [id number]
--- NOTE | 2020-08-05 07:57 | OP.CCLET_ITS ---
08/05/2020 Kingston Goldberg [address] [place] [address] Re : Upper GI endoscopy procedure for Haile Santoro Dear Dr. Goldberg This procedure was performed on Wednesday, August 05, 2020. My impressions and recommendations are as follows: Impressions : - Reflux esophagitis. Biopsied. - Small hiatal hernia. - Erythematous mucosa in the antrum. Biopsied. - Normal examined duodenum. Recommendations : - Await pathology results. - Discharge patient to home. - Resume previous diet. - Continue present medications. - Telephone my office for pathology results in 1 week. Treat medically. Consider combined Bariatric/reflux procedure if symptoms escalate My findings are described in the full procedure note, which is enclosed. If I can be of further assistance, please feel free to contact me at Doctor phone number(s): Work: . Sincerely, Ilya Jeffers MD 08/05/2020 7:57:13 AM This report has been signed electronically.
--- NOTE | 2020-08-05 07:57 | OP.EGD_ITS ---
Patient Name: Haile Santoro Procedure Date: 08/05/2020 7:27 AM Date of : 1985 Age: 35 Procedure: Upper GI endoscopy Indications: Suspected gastro-esophageal reflux disease Providers: Ilya Jeffers MD Referring MD: Kingston Goldberg Medicines: See the Anesthesia note for documentation of the administered medications Complications: No immediate complications. Procedure: Pre-Anesthesia Assessment: - Prior to the procedure, a History and Physical was performed, and patient medications and allergies were reviewed. The patient's tolerance of previous anesthesia was also reviewed. The risks and benefits of the procedure and the sedation options and risks were discussed with the patient. All questions were answered, and informed consent was obtained. Prior Anticoagulants: The patient has taken no previous anticoagulant or antiplatelet agents. ASA Grade Assessment: III - A patient with severe systemic disease. After reviewing the risks and benefits, the patient was deemed in satisfactory condition to undergo the procedure. After obtaining informed consent, the endoscope was passed under direct vision. Throughout the procedure, the patient's blood pressure, pulse, and oxygen saturations were monitored continuously. The gastroscope was introduced through the mouth, and advanced to the second part of duodenum. The upper GI endoscopy was accomplished without difficulty. The patient tolerated the procedure well. Scope In: 7:46:52 AM Scope Out: 7:52:28 AM Total Procedure Duration Time 0 hours 5 minutes 36 seconds Findings: Esophagitis with no bleeding was found 40 cm from the incisors. Biopsies were taken with a cold forceps for histology. A small hiatal hernia was present. Diffuse mildly erythematous mucosa without bleeding was found in the gastric antrum. Biopsies were taken with a cold forceps for histology. The examined duodenum was normal. Impression: - Reflux esophagitis. Biopsied. - Small hiatal hernia. - Erythematous mucosa in the antrum. Biopsied. - Normal examined duodenum. Recommendation: - Await pathology results. - Discharge patient to home. - Resume previous diet. - Continue present medications. - Telephone my office for pathology results in 1 week. Treat medically. Consider combined Bariatric/reflux procedure if symptoms escalate Procedure Code(s): --- Professional --- 45469, Esophagogastroduodenoscopy, flexible, transoral; with biopsy, single or multiple Diagnosis Code(s): --- Professional --- K21.0, Gastro-esophageal reflux disease with esophagitis K44.9, Diaphragmatic hernia without obstruction or gangrene K31.89, Other diseases of stomach and duodenum CPT copyright 2017 [employer]. All rights reserved. The codes documented in this report are preliminary and upon industrial safety engineer review may be revised to meet current compliance requirements. Ilya Jeffers MD 08/05/2020 7:57:13 AM This report has been signed electronically. Number of Addenda: 0 Note Initiated On: 08/05/2020 7:27 AM
[2020-08-05] MEDS: Lactated Ringers 1,000 ML 100 ML IV (08:07)
== END 2020-08-05 08:44 | disposition home or self-care (01) ==
LOC: EN 06:45 → AC 06:45
PROVIDERS: PCP Family Medicine; Referring Provider Family Medicine; Visit Provider Surgery
PROC: 0DJ08ZZ Inspection of Upper Intestinal Tract, Via Natural or Artificial Opening Endoscopic (ICD-10-PCS; CPT 43235; principal; 2020-08-05 07:40)
DX: K29.70 Gastritis, unspecified, without bleeding (principal); K44.9 Diaphragmatic hernia without obstruction or gangrene; K21.00 Gastro-esophageal reflux disease with esophagitis, without bleeding; F41.9 Anxiety disorder, unspecified; F32.9 Major depressive disorder, single episode, unspecified; F17.210 Nicotine dependence, cigarettes, uncomplicated; G47.30 Sleep apnea, unspecified; E66.01 Morbid (severe) obesity due to excess calories; Z68.43 Body mass index [BMI] 50.0-59.9, adult; Z20.822 Contact with and (suspected) exposure to COVID-19; Z79.899 Other long term (current) drug therapy
CPT/HCPCS: 43239; 87426; 88305; 88313; 88342; C9803; J7120; J2405

== ENCOUNTER → 2020-09-10 19:47 | Outpatient (CLI) | payer MEDICAID, SELFPAY ==
[2020-08-05 07:03] VITALS: BMI 56.2
== END ==
PROVIDERS: PCP Family Medicine; Visit Provider Nurse Practitioner Acute Care
DX: G47.33 Obstructive sleep apnea (adult) (pediatric) (principal)
CPT/HCPCS: 95811

== ENCOUNTER 2021-06-08 11:30 | Outpatient (RCR) | payer MEDICAID, SELFPAY ==
--- NOTE | 2021-04-15 16:01 | HP.PTEVAL_ITS ---
Patient's Visit Information NAOMI AHUMADA is a 36 year old M referred to Physical Therapy by Dr. Fernanda Marti MD with a diagnosis of LUMBAR STRAIN. Date of Evaluation: 04/15/21 Physical Therapist: Damián Connell, PT, Cert MDT, OCS - Visit Plan Frequency: 2x /Week Duration: 4 Weeks Plan: PATIENT HAS CP AND AT W/C LEVLEL BUT CAN WALK MIN DISTANCES WITH FWW. PT INTERVENTIONS POSTURAL EX'S,DLS , LE FLEXABLITY AND HEP - Subjective This 36 y/o male presents to physical therapy with low back pain. This patient is W/C level with h/o cerebral palsy. Patient has thoracic-lumbar pain 1 month. Patient went to ER and CTSCAN and Toradol. Seen Family DR recommended PT. Aggravating factors walking and standing min distance < 5mins and laying down. Alleviating sitting with good posture. Pain was insidious onset without injury. Patient pain affects sleeping. Denies paresthesia/tingling .Bowel/bladder - Coughing/sneezing -. Patient able to transfer in/out truck ,able get in/of of bed. Patient goal to decrease pain. Walking is limited due to severity of back pain. SOCAIL: . VOCATION: disablity - Pain Bilateral Back Pain Intensity (Out of 10): 3 Pain Intensity Range: 10 Comment: thoracic ,lumbar - Objective POSTURE: rounded shoulders ,forward. PALAPTION: tender paraspinals thoracic /lumbar. TRANSFERS: MOD I. GAIT: Ambulate with marked forward posture 5 ft. LUMBAR ROM: severe loss with extension, flexion mod loss with decrease curve reversal. MMT: BUE 4/5,shoulders 4-/5,quads 3-/4,hams 2/5,hip 2/5. FLEXABLITY: hamstrings mod/severe tight. HIP ROM: POOR PROM - Special Tests L/S Slump test left side: Negative L/S Slump test right side: Negative L/S Left Straight Leg Raise: Negative L/S Right Straight Leg Raise: Negative - Balance/Special Test Scores Oswestry Low Back Score: 36 - Goals Goal 1:: Patient to be I with HEP to manage pain. Goal Time Frame: 4-6 Weeks Goal 2:: Patient to demonstrate 50% improvement with decrease back pain. Goal Time Frame: 4-6 Weeks Goal 3:: Patient to improve gait for transfers and maximize functional I with less pain. Goal Time Frame: 4-6 Weeks Goal 4:: Patient to improve back owestry score by 5 points to improve QOL. Goal Time Frame: 4-6 Weeks - Rehabilitation Potential Physical Therapy Diagnosis: This patient has LBP along with comorbities of CP ankle ankle fusion with thoracic/lumbar pain impacts ability to function with min gait and transfers in/out of truck and bed mobility thus will benefit from skilled PT Rehabilitation Potential: Fair - Anticipated Interventions Patient/Client Instruction: Educate patient on: Condition, Plan of Care For the Purpose of:: To decrease pain, To increase ROM, To improve muscle performance and motor function, To improve ability to perform ADL's, To increase tolerance to activity/condition/position, To improve performance and independence with ADL's, To improve ability of physical actions for home/community/work/leisure, To improve health of tissue, To decrease soft tissue restriction, To increase flexibility/ROM Therapeutic Exercise to Include: Strength training, Endurance training, Postural training, Flexibilty training For the Purpose of:: To decrease pain, To increase ROM, To improve muscle performance and motor function, To improve ability to perform ADL's, To increase tolerance to activity/condition/position, To improve ability of physical actions for home/community/work/leisure, To improve health of tissue, To decrease soft tissue restriction, To increase flexibility/ROM Thank you for the opportunity to evaluate your patient. For Medicare and Medicare HMO plans, please review the plan of care and approve it. It will need to be FAXED BACK to us at [phone] for Medicare purposes. For Medicare only, by signing this I certify the plan of care. Please let me know if there are questions or concerns regarding this plan of care. Physician Signature: ___Date:
--- NOTE | 2021-06-08 11:51 | HP.PTEVAL_ITS ---
Patient's Visit Information NAOMI AHUMADA is a 36 year old M referred to Physical Therapy by Dr. Fernanda Marti MD with a diagnosis of LUMBAR STRAIN. Date of Evaluation: 04/15/21 Physical Therapist: Damián Connell PT, Cert MDT, OCS - Visit Plan Frequency: 2x /Week Duration: 4 Weeks Plan: D/C - Subjective This 36 y/o male presents to physical therapy with low back pain. This patient is W/C level with h/o cerebral palsy. Patient has thoracic-lumbar pain 1 month. Patient went to ER and CTSCAN and Toradol. Seen Family DR recommended PT. Aggravating factors walking and standing min distance < 5mins and laying down. Alleviating sitting with good posture. Pain was insidious onset without injury. Patient pain affects sleeping. Denies paresthesia/tingling .Bowel/bladder - Coughing/sneezing -. Patient able to transfer in/out truck ,able get in/of of bed. Patient goal to decrease pain. Walking is limited due to severity of back pain. SOCAIL: . VOCATION: disablity - Pain Bilateral Back Pain Intensity (Out of 10): 0 Pain Intensity Range: 10 Comment: thoracic ,lumbar - Objective POSTURE: rounded shoulders ,forward. PALAPTION: tender paraspinals thoracic /lumbar. TRANSFERS: MOD I. GAIT: Ambulate with marked forward posture 5 ft. LUMBAR ROM: severe loss with extension, flexion mod loss with decrease curve reversal. MMT: BUE 4/5,shoulders 4-/5,quads 3-/4,hams 2/5,hip 2/5. FLEXABLITY: hamstrings mod/severe tight. HIP ROM: POOR PROM - Special Tests L/S Slump test left side: Negative L/S Slump test right side: Negative L/S Left Straight Leg Raise: Negative L/S Right Straight Leg Raise: Negative - Balance/Special Test Scores Oswestry Low Back Score: 16 - Goals Goal 1:: Patient to be I with HEP to manage pain. Goal Time Frame: 4-6 Weeks Goal 2:: Patient to demonstrate 50% improvement with decrease back pain. Goal Time Frame: 4-6 Weeks Goal 3:: Patient to improve gait for transfers and maximize functional I with less pain. Goal Time Frame: 4-6 Weeks Goal 4:: Patient to improve back owestry score by 5 points to improve QOL. Goal Time Frame: 4-6 Weeks - Rehabilitation Potential Physical Therapy Diagnosis: This patient has LBP along with comorbities of CP ankle ankle fusion with thoracic/lumbar pain impacts ability to function with min gait and transfers in/out of truck and bed mobility thus will benefit from skilled PT Rehabilitation Potential: Fair - Anticipated Interventions Patient/Client Instruction: Educate patient on: Condition, Plan of Care For the Purpose of:: To decrease pain, To increase ROM, To improve muscle performance and motor function, To improve ability to perform ADL's, To increase tolerance to activity/condition/position, To improve performance and independence with ADL's, To improve ability of physical actions for home/community/work/leisure, To improve health of tissue, To decrease soft tissue restriction, To increase flexibility/ROM Therapeutic Exercise to Include: Strength training, Endurance training, Postural training, Flexibilty training For the Purpose of:: To decrease pain, To increase ROM, To improve muscle performance and motor function, To improve ability to perform ADL's, To increase tolerance to activity/condition/position, To improve ability of physical actions for home/community/work/leisure, To improve health of tissue, To decrease soft tissue restriction, To increase flexibility/ROM Thank you for the opportunity to evaluate your patient. For Medicare and Medicare HMO plans, please review the plan of care and approve it. It will need to be FAXED BACK to us at [phone] for Medicare purposes. For Medicare only, by signing this I certify the plan of care. Please let me know if there are questions or concerns regarding this plan of care. Physician Signature: Date:
--- NOTE | 2021-06-08 12:48 | HP.PTDCSUM ---
It has been my pleasure to treat NAOMI AHUMADA referred by Dr. Fernanda Marti MD, with the diagnosis of LUMBAR STRAIN for a total of 9 visit(s). Discharge Date: 06/08/21 Please see the following information for a summary of their discharge status. Subjective: Doing better ..no pain Bilateral Back Pain Intensity (Out of 10): 0 % Improvement: 60 Objective/Function: POSTURE: MILD FORWARD POSTURE ,POSTERIOR TILT. MOBILITY: PMD. AROM: BUE WFL. MMT: BUE 4/5 Goal 1:: Patient to be I with HEP to manage pain. Goal Progress: Goal Met Goal 2:: Patient to demonstrate 50% improvement with decrease back pain. Goal Progress: Goal Met Goal 3:: Patient to improve gait for transfers and maximize functional I with less pain. Goal Progress: Goal Met Goal 4:: Patient to improve back owestry score by 5 points to improve QOL. Goal Progress: Goal Met Plan: D/C Discharge Comments: HEP If there are questions or concerns regarding this patient's physical therapy, please feel free to call me at [phone]. Thank you for the referral of this patient. Sincerely, Damián Connell, PT, Cert MDT, OCS Balance/Gait/Functional tests - Balance/Special Test Scores Oswestry Low Back Score: 16
== END 2021-06-08 19:00 | disposition home or self-care (01) ==
LOC: PT 11:30
PROVIDERS: PCP Family Medicine; Referring Provider Family Medicine; Visit Provider Family Medicine
DX: S39.012D Strain of muscle, fascia and tendon of lower back, subsequent encounter (principal); X58.XXXD Exposure to other specified factors, subsequent encounter
CPT/HCPCS: 97110; 97163

== ENCOUNTER 2021-06-27 16:47 | Inpatient (IN) | payer MEDICAID, SELFPAY ==
[2021-06-27] VITALS (8 sets, daily range): BP systolic 101–134; BP diastolic 57–84; PULSE 80–90; RESP 22–26; TEMP 36.5–37.3; O2SAT 87–94; BMI 57.0; BMI 55.2
--- NOTE | 2021-06-27 17:44 | EKG12_ITS ---
Test Reason : SOB Blood Pressure : / mmHG Vent. Rate : 082 BPM Atrial Rate : 082 BPM P-R Int : 142 ms QRS Dur : 082 ms QT Int : 386 ms P-R-T Axes : 047 -13 035 degrees QTc Int : 450 ms Normal sinus rhythm Normal ECG Confirmed by CORNELIO BENÍTEZ, MARGIE ([id number]), restaurant expeditor NURIA JULES ([id number]) on 06/29/2021 10:26:53 AM Referred By: PRESTON Confirmed By:MARGIE GRIMES MD
--- NOTE | 2021-06-27 17:46 | RAD_ITS ---
STUDY: X-RAY CHEST REASON FOR EXAM: Male, 36 years old. cough TECHNIQUE: AP COMPARISON: 03/22/2018 FINDINGS: Multifocal infiltrates with features commonly reported with COVID pneumonia. There is no demonstrated pleural abnormality. Normal size heart. Normal mediastinum and lgenn. Normal visualized pulmonary arteries. Normal visualized aortic arch and descending thoracic aorta. Normal visualized thoracic spine. Normal visualized ribs, clavicles, and shoulders. There is no demonstrated abnormality of the visualized soft tissue structures of the upper abdomen. RAD/Chest 1 View (Portable) IMPRESSION: Multifocal infiltrates with features commonly reported with COVID pneumonia. Electronically Signed: Luis Cisneros MD (Brooks) at 18:08 EST , Service support ,
--- NOTE | 2021-06-27 17:53 | NURSING ---
NO OLD EKGS
[2021-06-27 18:08] LABS: Absolute Lymphocyte Count 1.28 X10^3/uL (0.83-4.51); Absolute Neutrophil Count 3.2 X10^3/uL (2.0-7.7); Basophil# 0.01 X10^3/uL; Basophil% 0.2 % (0-1); Hematocrit 45.1 % (40-54); Hemoglobin 14.9 g/dL (13.0-16.5); Lymphocyte # 1.28 X10^3/ul (0.83-4.51); Lymphocyte % 26.4 % (19-41); Mean Corpuscular Volume 84.6 fL (80-94); Mean Platelet Vol. 12.5 fl (6.2-12.0); Monocyte# 0.31 X10^3/uL; Monocyte% 6.4 % (0-10); NRBC Flagged by Analyzer 0 % (0-5); Neutrophil # 3.22 X10^3/uL (2.7-7.7); Neutrophil % 66.6 % (47-70); Platelet Count 122 K/mm3 (150-450); RBC Distribution Width CV 13.9 % (11.6-14.6); RBC Distribution Width SD 42.9 fl (35.1-43.9); Red Blood Count 5.33 M/mm3 (4.6-6.2); White Blood Count 4.8 K/mm3 (4.4-11.0)
[2021-06-27 18:23] LABS: ALB/GLOB Ratio 0.8 RATIO (0.9-2.4); AST(SGOT) 94 U/L (15-37); Alanine Aminotransfer ALT/SGPT 79 U/L (16-61); Albumin, Serum 3.3 g/dL (3.2-5.0); Alkaline Phosphatase 78 U/L (45-117); Anion Gap 11 (5-15); BUN 18 mg/dL (7-18); BUN/Creat Ratio 18.5 RATIO (10-20); Calcium,Total 8.1 mg/dL (8.5-10.1); Chloride 110 mmol/L (98-107); Creatinine, Serum 0.97 mg/dL (0.70-1.30); EST Glomerular Filtration Rate 92 mL/min (>60); Est Glom Filt Rate - Afr Amer 111 mL/min (>60); Estimated Creatinine Clearance 79.74 ml/min; Globulin 3.9 g/dL (2.2-4.2); Glucose 96 mg/dL (74-106); Potassium 4.6 mmol/L (3.5-5.1); Protein, Total 7.2 g/dL (6.4-8.2); Sodium Level 142 mmol/L (136-145); Troponin-I HS 7 pg/mL (3.0-78.0)
[2021-06-27] MEDS: Acetaminophen 500 MG Tablet 1000 MG PO (18:26)
[2021-06-27 18:44] LABS: Lactic Acid 1.2 mmol/L (0.4-1.9)
[2021-06-27] MEDS: dexAMETHasone 10 MG/ML Vial 6 MG IV (20:24)
--- NOTE | 2021-06-27 21:19 | EDS_ITS ---
HPI History of Present Illness Chief Complaint: Shortness of Breath Informant: patient Onset/Context/Timing Onset: Days (12) Context: gradual Timing: Continuous Quality: Positive for Dyspnea on exertion Worsened by: Exertion Relieved by: Nothing Associated Symptoms cough, ear pain and fever; Negative for rhinorrhea or sore throat Chest Pain: Positive for Tightness Narrative Narrative: Patient with shortness of breath that has been getting worse over the past 12 days. Patient states he was diagnosed with COVID-19 on 06/17/2021. Patient states he has been taking Tylenol which seems to help with his fevers. Patient states his breathing is worse with any exertion. Patient admits to a cough with some sputum. Patient is unsure what the sputum looks like. Patient also admits to pain in both ears. Patient states her temperature today was up to 103 at home. Patient also admits to some tightness in his chest. [facility] Medical History (Updated 06/27/21 @ 21:[address] Mamadou Gomez DO) Anxiety and depression GERD (gastroesophageal reflux disease) Hemorrhoid Irritable bowel syndrome (IBS) Restrictive lung disease Sleep apnea Home Medications ibuprofen 800 mg PO TID PRN 02/08/19 [History Last Taken 07/29/20] omeprazole 20 mg PO DAILY 02/08/19 [History Last Taken Unknown] propranolol 100 mg PO DAILY 02/08/19 [History Last Taken Unknown] sertraline 150 mg PO DAILY 02/08/19 [History Last Taken Unknown] lactobacillus combination no.8 3 billion cell capsule 3,000 mmu cells PO DAILY 07/24/20 [History Last Taken Unknown] Allergy/AdvReac Type Severity Reaction Status Date / Time No Known Allergies Allergy Verified 06/27/21 16:48 Family History (Reviewed 06/02/21 @ 11:11 by Simi Chu DATABASE REPORTING CONSULTANT, DATABASE REPORTING CONSULTANT-C) Mother Cancer kidney Hypertension Diabetes Father Diabetes Hypertension Surgical History History of ankle fusion History of bilateral carpal tunnel release History of colonoscopy (~2018) History of esophagogastroduodenoscopy (EGD) (~2013) History of eye surgery History of heart valve repair History of tonsillectomy and adenoidectomy History of tympanoplasty Social History Smoking Status: Light Smoker (<10/day) Tobacco: How many years used: 20 ROS ROS ED Constitutional Constitutional ED: Reports fever(s); Denies chills Eyes Eyes: Denies blurry vision or change in vision ENT ENT ED: Reports ear pain bilateral; Denies rhinorrhea or sore throat Cardiovascular Cardiovascular: Reports chest pain; Denies palpitations Respiratory/Chest Respiratory/Chest: Reports cough and dyspnea Gastrointestinal Gastrointestinal: Reports diarrhea, nausea and vomiting Genitourinary Genitourinary ED: Denies dysuria or hematuria Musculoskeletal Musculoskeletal: Reports back pain; Denies neck pain Integumentary Reports rash; Denies abscess Neurologic Neurologic: Reports headache(s); Denies weakness Allergic/Immunologic Allergic/Immunologic ED: Denies mouth swelling or urticaria EXAM Physical Exam Const Vital Signs: 06/27/21 16:49 06/27/21 16:53 06/27/21 18:54 Temperature 97.7 F L Temperature Source Temporal Pulse Rate 90 88 Respiratory Rate 22 H 26 H Respiratory Effort Short of Breath Labored Respiratory Pattern Tachypnea Blood Pressure 113/84 H Blood Pressure Mean 93 Pulse Ox 87 92 92 Oxygen Delivery Method Room Air Nasal Cannula Nasal Cannula Oxygen Flow Rate (L/min) 4 4 06/27/21 19:40 06/27/21 21:56 Temperature 99.2 F H 99.2 F H Temperature Source Temporal Temporal Pulse Rate 81 80 Respiratory Rate 24 H 26 H Respiratory Effort Respiratory Pattern Blood Pressure 101/75 105/57 L Blood Pressure Mean 83 73 Pulse Ox 93 90 Oxygen Delivery Method Nasal Cannula Nasal Cannula Oxygen Flow Rate (L/min) 4 4 Positive well nourished, well developed and obese General Appearance ED: well developed Nutritional Appearance: obese HEENT Reports moist mucous membranes Neck supple and no JVD Resp Auscultation: diminished lung sounds diffuse Cardio regular rate and regular rhythm GI non-tender Palpation: soft Neuro oriented x3, CN's II-XII intact bilaterally and no sensory deficits noted Sensorium / Orientation: alert Motor Exam: strength 5/5 throughout Psych mental status grossly normal MDM MDM MDM Narrative Medical decision making narrative: Patient was given a dose of dexamethasone here. Patient was given 6 puffs of an albuterol inhaler. Patient was given a dose of Tylenol. EKG was obtained. On my interpretation, it showed a normal sinus rhythm with a rate of 82. CA interval, QRS interval, and QTc intervals were all normal. [place] was normal. There are no acute ST or T wave changes. Portable chest x-ray was obtained. There is 1 view. On my interpretation, there are bilateral multifocal infiltrates consistent with COVID-19 pneumonia. CBC was within normal limits. Comprehensive metabolic profile was normal. Lactate was normal. High-sensitivity troponin was normal. Patient was advised of his findings. Patient is doing better on 4 L nasal cannula. Patient's oxygen saturations have maintained in the mid 90s with 4 L nasal cannula. Be cause of his hypoxia, I will discussed the case with the hospitalist for admission to the hospital. Patient understands and is agreeable with the plan. All questions were answered. Lab Data Attestation: I reviewed the patient's lab results. Labs: Laboratory Results - last 24 hr 06/27/21 06/27/21 06/27/21 17:10 17:10 17:10 WBC 4.8 RBC 5.33 Hgb 14.9 Hct 45.1 MCV 84.6 MCH 28.0 MCHC 33.0 RDW Std Deviation 42.9 RDW Coeff of Trell 13.9 Plt Count 122 L MPV 12.5 H Immature Gran % (Auto) 0.400 Neut % (Auto) 66.6 Lymph % (Auto) 26.4 Stanton % (Auto) 6.4 Eos % (Auto) 0.0 Baso % (Auto) 0.2 Absolute Neuts (auto) 3.2 Absolute Lymphs (auto) 1.28 Nucleated RBC % 0 Sodium 142 Potassium 4.6 Chloride 110 H Carbon Dioxide 21.0 Anion Gap 11 BUN 18 Creatinine 0.97 Estim Creat Clear Calc 79.74 Est GFR (MDRD) Af Amer 111 Est GFR (MDRD) Non-Af 92 BUN/Creatinine Ratio 18.5 Glucose 96 Lactic Acid 1.2 Calcium 8.1 L Total Bilirubin 0.50 AST 94 H ALT 79 H Alkaline Phosphatase 78 Troponin I High Sens 7 Total Protein 7.2 Albumin 3.3 Globulin 3.9 Albumin/Globulin Ratio 0.8 L Radiography Chest X-Ray - ED: 1 View, Read by ED Physician, Read by Radiologist, Right Infiltrate and Left Infiltrate Diagnostic Testing: Clinical Impression(s) from Imaging Studies Chest X-Ray 06/27/21 17:46 IMPRESSION: Multifocal infiltrates with features commonly reported with COVID pneumonia. Electronically Signed: Luis Cisneros MD (Brooks) at 18:08 EST , Service support , EKG Initial EKG: Attestation: I personally reviewed and interpreted this EKG as follows: Interpretation: Sinus Rhythm (82) and No Acute Injury Pattern Discharge Plan Dx/Rx/DC Orders Clinical Impression: Pneumonia due to COVID-19 virus, Hypoxia Disposition Disposition: Acute Care Hospital [facility]
--- NOTE | 2021-06-27 22:25 | PCM.HP.STD ---
[facility] - General General Date of Admission: 06/27/21 HPI Narrative NAOMI AHUMADA, is a 36 M with a significant history of restrictive lung disease; sleep apnea and on home CPAP; cerebral palsy who uses a walker to ambulate; and tobacco abuse who presents to the emergency department with progressively worsening shortness of breath that started around 06/17/2021. Patient tested positive for COVID-19 on June. When paramedics found patient his oxygen saturation was about 86%. Associated for symptoms is fatigue, weakness, anorexia, dysgeusia, anosmia, loose stools, fever of temperature of about 103 Fahrenheit and chills. He has been taking [id number] ibuprofen 800 mg and also Tylenol. [facility] Medical History (Updated 06/27/21 @ 22:[address] Carloz Jimenez MD) Anxiety and depression GERD (gastroesophageal reflux disease) Hemorrhoid Irritable bowel syndrome (IBS) Restrictive lung disease Sleep apnea Home Medications ibuprofen 800 mg PO TID PRN 02/08/19 [History Last Taken 07/29/20] omeprazole 20 mg PO DAILY 02/08/19 [History Last Taken Unknown] propranolol 100 mg PO DAILY 02/08/19 [History Last Taken Unknown] sertraline 150 mg PO DAILY 02/08/19 [History Last Taken Unknown] lactobacillus combination no.8 3 billion cell capsule 3,000 mmu cells PO DAILY 07/24/20 [History Last Taken Unknown] Allergy/AdvReac Type Severity Reaction Status Date / Time No Known Allergies Allergy Verified 06/27/21 16:48 Family History Mother Cancer kidney Hypertension Diabetes Father Diabetes Hypertension Surgical History History of ankle fusion History of bilateral carpal tunnel release History of colonoscopy (~2018) History of esophagogastroduodenoscopy (EGD) (~2013) History of eye surgery History of heart valve repair History of tonsillectomy and adenoidectomy History of tympanoplasty Social History Smoking Status: Light Smoker (<10/day) Tobacco: How many years used: 20 ROS ROS Narrative Constitutional: Reports fever, chills, fatigue, and anorexia. Denies change in weight Eyes: Denies blurry vision, change in eye color, change in vision, discharge from eye(s), double vision, erythema, eye pain, loss of vision or other HEENT: Denies abnormal hearing, dysphagia, ear pain, epistaxis, headache(s), hearing loss, nasal congestion, nasal discharge, post nasal drip, sinus pressure, sore throat or other Cardiovascular: Denies chest pain or palpitations. Respiratory/Chest: Reports cough with little sputum. Unable to tell color sputum. Reports shortness of breath. Gastrointestinal: Reports loose stools. Denies abdominal pain, coffee ground emesis, constipation, dyspepsia, hematemesis, hematochezia, melena, nausea, vomiting or other Genitourinary: Denies burning urination, difficulty urinating, dysuria, hematuria, nocturia, urinary frequency, urinary hesitancy, urinary incontinence, urinary urgency or other Musculoskeletal: Denies arthralgias, back pain, joint pain, joint stiffness, joint swelling,, neck pain or other Neurologic: Denies abnormal gait, abnormal speech, confusion, disequilibrium, dizziness, focal weakness, headache(s), numbness, paresthesias, seizure-like activity, seizures, syncope, tingling, tremor(s) or other Psychiatric: Denies anxiety, depression, homicidal ideation, suicidal ideation or other Endocrinology: Denies change in body appearance, cold intolerance, excessive sweating, heat intolerance, polydipsia, polyuria or other Hematologic/Lymphatic: Denies anemia, easy bleeding, easy bruising, lymphadenopathy or other Integumentary: Denies rashes Allergic/Immunologic: Denies rhinitis, hives, eczema, asthma or other Vital Signs Vital Signs Vital Signs: 06/27/21 16:49 06/27/21 16:53 06/27/21 18:54 Temperature 97.7 F L Temperature Source Temporal Pulse Rate 90 88 Respiratory Rate 22 H 26 H Respiratory Effort Short of Breath Labored Respiratory Pattern Tachypnea Blood Pressure 113/84 H Blood Pressure Mean 93 Pulse Ox 87 92 92 Oxygen Delivery Method Room Air Nasal Cannula Nasal Cannula Oxygen Flow Rate (L/min) 4 4 06/27/21 19:40 06/27/21 21:56 Temperature 99.2 F H 99.2 F H Temperature Source Temporal Temporal Pulse Rate 81 80 Respiratory Rate 24 H 26 H Respiratory Effort Respiratory Pattern Blood Pressure 101/75 105/57 L Blood Pressure Mean 83 73 Pulse Ox 93 90 Oxygen Delivery Method Nasal Cannula Nasal Cannula Oxygen Flow Rate (L/min) 4 4 Weight Weight: 141.5 kg Body Mass Index (BMI) 57.0 Physical Exam Narrative Physical exam: General: Morbidly obese Head: Normocephalic, atraumatic, no tenderness Eyes: PERRLA, EOMI ENT, no trauma, moist mucous membranes, no rhinorrhea Neck: Nontender, full range of motion, no spinal tenderness, deformities, step-off CVS: Regular rate and rhythm. S1-S2 present. No murmur, gallop or rub. Respiratory : Diminished with mild rhonchi. Chest wall nontender. Abdomen: Soft, nontender, nondistended, normal bowel sounds, no masses : Deferred Back: Nontender, no CVA tenderness, no midline spinal tenderness, deformities, step-offs Extremities: Decreased range of motion of bilateral lower extremities. Strength in bilateral upper extremities 5 out of 5. Skin: Normal color, no trauma, abrasions Neuro: Alert, oriented, cranial nerves II through XII grossly intact. Psychiatry: Normal mood. Normal affect. Not depressed. Not anxious. Results Lab / Micro Data Result Diagrams: 06/27/21 17:10 06/27/21 17:10 Labs: Laboratory Results - last 24 hr 06/27/21 17:10: WBC 4.8, RBC 5.33, Hgb 14.9, Hct 45.1, MCV 84.6, MCH 28.0, MCHC 33.0, RDW Std Deviation 42.9, RDW Coeff of Trell 13.9, Plt Count 122 L, MPV 12.5 H, Immature Gran % (Auto) 0.400, Neut % (Auto) 66.6, Lymph % (Auto) 26.4, Evans % (Auto) 6.4, Eos % (Auto) 0.0, Baso % (Auto) 0.2, Absolute Neuts (auto) 3.2, Absolute Lymphs (auto) 1.28, Nucleated RBC % 0 06/27/21 17:10: Sodium 142, Potassium 4.6, Chloride 110 H, Carbon Dioxide 21.0, Anion Gap 11, BUN 18, Creatinine 0.97, Estim Creat Clear Calc 79.74, Est GFR (MDRD) Af Amer 111, Est GFR (MDRD) Non-Af 92, BUN/Creatinine Ratio 18.5, Glucose 96, Calcium 8.1 L, Total Bilirubin 0.50, AST 94 H, ALT 79 H, Alkaline Phosphatase 78, Troponin I High Sens 7, Total Protein 7.2, Albumin 3.3, Globulin 3.9, Albumin/Globulin Ratio 0.8 L 06/27/21 17:10: Lactic Acid 1.2 Radiology Impression Chest X-Ray 06/27/21 17:46 IMPRESSION: Multifocal infiltrates with features commonly reported with COVID pneumonia. Electronically Signed: Luis Cisneros MD (Brooks) at 18:08 EST , Service support , Assessment & Plan Assessment/Plan (1) Acute hypoxemic respiratory failure: (2) Pneumonia due to COVID-19 virus: (3) BMI 50.0-59.9, adult: (4) MOOK (obstructive sleep apnea): PLAN: Acute hypoxemic respiratory failure secondary to SARS- COV 2 Oxygen saturation of 86% in route to the hospital and 87% on room air at the emergency department. Started on supplemental oxygenation at the emergency department and continued. Reported Positive coronavirus test outpatient. Actual chest x-ray image was independently interpreted. Chest x-ray with bilateral opacities worse in the right lung than left lung. CBC reviewed showed normal white counts. Platelets of 122. CMP reviewed showed elevated AST and ALT, likely secondary to Covid. Trend CMP. Trend CBC. Received Decadron at the emergency department and continued. Patient is outside window of remdesivir. Tylenol for fever. On home 800 mg of ibuprofen as needed, de-escalate dose. Mucinex for cough. Morbid Obesity BMI: 57.1 kilogram per meter square. Complicates care. Lifestyle modification recommended. Obstructive sleep apnea CPAP continued. Tobacco abuse Last time he smoked was about 10 days ago. Counseled. No nicotine patch indicated at this time. Depression/anxiety Sertraline continued Propanolol continued GERD: PPI continued DVT prophylaxis: Subcutaneous Lovenox ordered. Charges/Coding Visit Charges Inpatient E&M: 02782 Init Hosp L3
--- NOTE | 2021-06-27 23:27 | PCS.PANDOC ---
PANDEMIC DOCUMENTATION INITIATED: Date: 03/02/2021 Time: 190
[2021-06-27] MEDS: guaiFENesin 1,200 MG Tablet 1200 MG PO (23:29)
[2021-06-28] VITALS (10 sets, daily range): BP systolic 105–127; BP diastolic 61–84; PULSE 71–86; RESP 20; TEMP 35.7–37.3; O2SAT 93–97
--- NOTE | 2021-06-28 00:01 | CPS ---
Patient will bring in home CPAP tomorrow night. Would like to use [place] O2 for tonight. HYDRAULIC OPERATOR will monitor patient oxygen needs overnight.
[2021-06-28 06:42] LABS: Absolute Neutrophil Count 2.3 X10^3/uL (2.0-7.7); Basophil# 0.01 X10^3/uL; Basophil% 0.3 % (0-1); Hematocrit 47.8 % (40-54); Hemoglobin 15.5 g/dL (13.0-16.5); Lymphocyte % 22.2 % (19-41); Mean Corp Hgb Conc 32.4 g/dL (32-36); Mean Corpuscular Hgb 27.7 pg (27.0-32.0); Mean Corpuscular Volume 85.5 fL (80-94); Mean Platelet Vol. 12.4 fl (6.2-12.0); Monocyte# 0.14 X10^3/uL; Monocyte% 4.4 % (0-10); NRBC Flagged by Analyzer 0 % (0-5); Neutrophil # 2.28 X10^3/uL (2.7-7.7); Neutrophil % 72.5 % (47-70); POSITIVE MORPHOLOGY YES; Platelet Count 127 K/mm3 (150-450); RBC Distribution Width CV 13.7 % (11.6-14.6); RBC Distribution Width SD 42.9 fl (35.1-43.9); Red Blood Count 5.59 M/mm3 (4.6-6.2); White Blood Count 3.2 K/mm3 (4.4-11.0)
[2021-06-28 06:48] LABS: Differential Indicated SCAN CRITERIA MET
[2021-06-28 07:05] LABS: ALB/GLOB Ratio 0.8 RATIO (0.9-2.4); AST(SGOT) 91 U/L (15-37); Alanine Aminotransfer ALT/SGPT 88 U/L (16-61); Albumin, Serum 3.2 g/dL (3.2-5.0); Alkaline Phosphatase 80 U/L (45-117); Anion Gap 9 (5-15); BUN 19 mg/dL (7-18); BUN/Creat Ratio 23.2 RATIO (10-20); Calcium,Total 8.3 mg/dL (8.5-10.1); Chloride 109 mmol/L (98-107); Creatinine, Serum 0.82 mg/dL (0.70-1.30); EST Glomerular Filtration Rate 112 mL/min (>60); Est Glom Filt Rate - Afr Amer 135 mL/min (>60); Estimated Creatinine Clearance 94.33 ml/min; Globulin 4.1 g/dL (2.2-4.2); Glucose 179 mg/dL (74-106); Potassium 4.4 mmol/L (3.5-5.1); Protein, Total 7.3 g/dL (6.4-8.2); Sodium Level 142 mmol/L (136-145)
[2021-06-28] MEDS: Pantoprazole Sodium 20 MG Tablet PO (09:55)
[2021-06-28] MEDS: Sertraline 50 MG Tablet 150 MG PO (09:55)
[2021-06-28] MEDS: Enoxaparin 40 MG/0.4 ML Syringe SC ×2 (09:55→22:24)
[2021-06-28] MEDS: dexAMETHasone 2 MG TABLET 6 MG PO (09:56)
[2021-06-28] MEDS: guaiFENesin 1,200 MG Tablet 1200 MG PO ×2 (09:57→22:24)
[2021-06-28] MEDS: Propranolol LA 60 MG Capsule 120 MG PO (09:57)
--- NOTE | 2021-06-28 16:47 | PCM.PN.HOSP ---
Subjective Subjective Patient was seen and examined today, he is currently on 10 L of oxygen via nasal cannula. Patient was not vaccinated for COVID-19. Patient denies any chest pain, fevers, or chills. Objective Data Objective Data Vital Signs: Vital Signs Temp Pulse Resp BP Pulse Ox 99.0 F 81 20 H 124/77 H 94 06/28/21 16:24 06/28/21 16:24 06/28/21 16:24 06/28/21 16:24 06/28/21 16:24 Oxygen Flow Rate (L/min) 10 Oxygen Delivery Method High Flow Weight: 137 kg Body Mass Index (BMI) 55.2 Intake & Output: Intake and Output for Last 24 Hours 06/26/21 06/27/21 06/28/21 23:59 23:59 23:59 Intake Total 900 / 900 Output Total 650 / 650 Balance 250 / 250 Lab / Micro Data Result Diagrams: 06/28/21 05:30 06/28/21 05:30 Labs: Laboratory Results - last 24 hr 06/27/21 17:10: WBC 4.8, RBC 5.33, Hgb 14.9, Hct 45.1, MCV 84.6, MCH 28.0, MCHC 33.0, RDW Std Deviation 42.9, RDW Coeff of Trell 13.9, Plt Count 122 L, MPV 12.5 H, Immature Gran % (Auto) 0.400, Neut % (Auto) 66.6, Lymph % (Auto) 26.4, [place] % (Auto) 6.4, Eos % (Auto) 0.0, Baso % (Auto) 0.2, Absolute Neuts (auto) 3.2, Absolute Lymphs (auto) 1.28, Nucleated RBC % 0 06/27/21 17:10: Sodium 142, Potassium 4.6, Chloride 110 H, Carbon Dioxide 21.0, Anion Gap 11, BUN 18, Creatinine 0.97, Estim Creat Clear Calc 79.74, Est GFR (MDRD) Af Amer 111, Est GFR (MDRD) Non-Af 92, BUN/Creatinine Ratio 18.5, Glucose 96, Calcium 8.1 L, Total Bilirubin 0.50, AST 94 H, ALT 79 H, Alkaline Phosphatase 78, Troponin I High Sens 7, Total Protein 7.2, Albumin 3.3, Globulin 3.9, Albumin/Globulin Ratio 0.8 L 06/27/21 17:10: Lactic Acid 1.2 06/28/21 05:30: WBC 3.2 L, RBC 5.59, Hgb 15.5, Hct 47.8, MCV 85.5, MCH 27.7, MCHC 32.4, RDW Std Deviation 42.9, RDW Coeff of Trell 13.7, Plt Count 127 L, MPV 12.4 H, Immature Gran % (Auto) 0.600, Neut % (Auto) 72.5 H, Lymph % (Auto) 22.2, [place] % (Auto) 4.4, Eos % (Auto) 0.0, Baso % (Auto) 0.3, Absolute Neuts (auto) 2.3, Absolute Lymphs (auto) 0.70 L, Nucleated RBC % 0 06/28/21 05:30: Sodium 142, Potassium 4.4, Chloride 109 H, Carbon Dioxide 24.0, Anion Gap 9, BUN 19 H, Creatinine 0.82, Estim Creat Clear Calc 94.33, Est GFR (MDRD) Af Amer 135, Est GFR (MDRD) Non-Af 112, BUN/Creatinine Ratio 23.2 H, Glucose 179 H, Calcium 8.3 L, Total Bilirubin 0.50, AST 91 H, ALT 88 H, Alkaline Phosphatase 80, Total Protein 7.3, Albumin 3.2, Globulin 4.1, Albumin/Globulin Ratio 0.8 L Radiography Diagnostic Testing: Radiology Impression Chest X-Ray 06/27/21 17:46 IMPRESSION: Multifocal infiltrates with features commonly reported with COVID pneumonia. Electronically Signed: Luis Cisneros MD (Brooks) at 18:08 EST , Service support , Physical Exam Const alert, oriented x3, no apparent distress and healthy appearing General Appearance: cooperative, well kempt and well developed Orientation / Consciousness: awake, oriented to person, oriented to place and oriented to time HEENT normocephalic and moist oral mucous membranes Eyes PERRL, EOMs intact bilaterally and conjunctivae normal Neck nuchal rigidity, supple, no JVD and thyroid normal General: trachea midline Resp normal respiratory effort and clear to auscultation bilaterally Auscultation: Negative for rales, rhonchi or wheezes Cardio regular rate, regular rhythm, S1 normal heart sound, S2 normal heart sound, no murmurs, no rub and no gallops GI normal to inspection, nondistended, normoactive bowel sounds, soft to palpation, non-tender and non-distended Extremity no clubbing, cyanosis or edema Skin no rashes or lesions noted General Skin Exam: no breakdown Neuro oriented x3, CN's II-XII intact bilaterally, no focal motor deficits and no sensory deficits noted Sensorium / Orientation: awake and alert Speech: speech normal Psych thought process normal and affect normal Assessment & Plan Assessment/Plan (1) Pneumonia due to COVID-19 virus: PLAN: 1. COVID-19 pneumonia-continue dexamethasone, patient is out of the window for remdesivir. #2 acute hypoxic respiratory failure secondary to COVID-19 pneumonia-pulse ox will be monitored #3 obstructive sleep apnea-patient appears to be on a CPAP setting of 10 cm, nursing understood that the patient was supposed to have somebody bring in his CPAP machine. #4 morbid obesity Charges/Coding Visit Charges Inpatient E&M: 04311 Subs Hosp L2
[2021-06-28] MEDS: Acetaminophen 325 MG Tablet 650 MG PO (22:23)
[2021-06-28] MEDS: 0.9% Saline Lock 10 ML Syringe IV (22:24)
[2021-06-29 04:16] VITALS: BP 104/58; PULSE 75; RESP 20; TEMP 37.5; O2SAT 94
[2021-06-29] MEDS: Ibuprofen 600 MG Tablet PO (04:23)
[2021-06-29 06:46] VITALS: TEMP 36.6
[2021-06-29 07:55] VITALS: BP 116/58; PULSE 73; RESP 20; TEMP 37.2; O2SAT 93
[2021-06-29] MEDS: Sertraline 50 MG Tablet 150 MG PO (08:45)
[2021-06-29] MEDS: guaiFENesin 1,200 MG Tablet 1200 MG PO ×2 (08:45→20:28)
[2021-06-29] MEDS: dexAMETHasone 2 MG TABLET 6 MG PO (08:45)
[2021-06-29] MEDS: Pantoprazole Sodium 20 MG Tablet PO (08:45)
[2021-06-29] MEDS: Propranolol LA 60 MG Capsule 120 MG PO (08:45)
[2021-06-29] MEDS: Enoxaparin 40 MG/0.4 ML Syringe SC ×2 (08:47→20:28)
--- NOTE | 2021-06-29 09:20 | PCM.PN.HOSP ---
Subjective Subjective Patient is short of breath. Morbid obesity. Has history of cerebral palsy. Objective Data Objective Data Vital Signs: Vital Signs Temp Pulse Resp BP Pulse Ox 98.9 F 73 20 H 116/58 L 93 06/29/21 07:55 06/29/21 07:55 06/29/21 07:55 06/29/21 07:55 06/29/21 07:55 Oxygen Flow Rate (L/min) 10 Oxygen Delivery Method High Flow Weight: 302 lb 0.533 oz Body Mass Index (BMI) 55.2 Intake & Output: Intake and Output for Last 24 Hours 06/27/21 06/28/21 06/29/21 23:59 23:59 23:59 Intake Total 1650 / 1650 Output Total 650 / 650 250 / 250 Balance 1000 / 1000 -250 / -250 Lab / Micro Data Result Diagrams: 06/28/21 05:30 06/28/21 05:30 Physical Exam Narrative General: Alert, Oriented x3, Cooperative, BMI 55.2 kg/m? HEENT: Atraumatic, PERRLA, EOMI, Normocephalic Oral: No Gingival or Mucosal Lesions/ Ulcerations Neck: Supple, No JVD, Negative Carotid Bruits Lungs: Air entry severely diminished in bilateral lung bases. Bilateral expiratory rhonchi. Cardiovascular: Regular rate, Regular Rhythm, Normal S1, Normal S2, No murmurs Abdomen: Bowel Sounds Present, Soft, Non Tender, Non-Distended : No renal angle tenderness. No suprapubic tenderness. Extremities: No edema, Capillary Refill Less than 3 Seconds Skin: No rashes, No breakdown Musculoskeletal: Surgical scar chandra over ankle region. Chronic. No Tenderness to Palpation of Joints or Extremities Neurological: Cranial nerves II-XII grossly intact, DTR 2+/4 and Symmetrical, Neuro grossly intact Psych/Mental Status: Flat affect. Assessment & Plan Assessment/Plan (1) Pneumonia due to COVID-19 virus: PLAN: 1. COVID-19 pneumonia-continue dexamethasone, patient is out of the window for remdesivir. Patient on 9 to 10 L of oxygen high flow. #2 acute hypoxic respiratory failure secondary to COVID-19 pneumonia continue monitoring pulse ox. #3 obstructive sleep apnea-patient appears to be on a CPAP setting of 10 cm, nursing understood that the patient was supposed to have somebody bring in his CPAP machine. #4 morbid obesity, BMI 55.2 PG per meter square. Will need to follow-up in obesity clinic as an outpatient to consider bariatric surgery Charges/Coding Visit Charges Inpatient E&M: 39931 Subs Hosp L2
--- NOTE | 2021-06-29 12:10 | CASEMGMT ---
JOSE HARPER Assessment: Face to Face with pt for initial transition planning/care coordination assessment. JOSE HARPER introduced self and role at [facility], pt voices understanding and consents to assessment. Pt is A/O x4 and answers all questions appropriately at this time. Pt lying in bed with O2 on in no distress. Care providers, pharmacy, and demographics verified/updated. Admitting Dx: acute hypoxic resp failure secondary to COVID 19 PCP:Ashlyn Specialists: crystal Sal Preferred Pharmacy: [facility] Insurance: [facility] Community Plan [place] Prescription Benefit: yes LW/HPOA: Pt denies having a LW/DPOA and denies need for info regarding AD. LNOK: Geni Burch, sig other Living Arrangements: Pt lives with sig other in a single story house with a ramp to enter. Pt has CP and states his sig other assists him with dressing and bathing daily. Transportation: Pt drives self and denies concerns with transportation. DME/HHC/SNF: Pt has an electric w/c and manual w/c, walker and CPAP at home. Pt denies hx of HHC. States he has tried to get aides through [employer] but has been unsuccessful. Pt has been to [facility]. Pt is disabled. Pt was first tested for COVID with a home test and does not have a picture of positive reading. Pt states he has family who can provide him with groceries and supplies. His sig other is also positive for COVID. Pt gets his CPAP through [facility] in [place] and states should he need O2 upon dc, he would like to use their services. Pt states no concerns with going home at time of dc. Pt states no further concerns/needs. CM to follow. Advised pt to ask CM if any further question/concerns/needs arise, voices understanding. Pt Goal: Home Plan: Home
[2021-06-29 15:30] VITALS: BP 103/60; PULSE 76; RESP 18; TEMP 37.4; O2SAT 94
[2021-06-29] MEDS: Acetaminophen 325 MG Tablet 650 MG PO (15:59)
--- NOTE | 2021-06-29 16:11 | NURSING ---
Pt up to chair. Desatted to 75% on 9l hiflo. Bumped to 15l and recovered quickly. O2 readjusted back to 9l, with sats at 92%.
[2021-06-29 20:19] VITALS: BP 107/67; PULSE 77; RESP 20; TEMP 36.5; O2SAT 95
[2021-06-30] VITALS (9 sets, daily range): BP systolic 112–128; BP diastolic 66–75; PULSE 69–83; RESP 18–22; TEMP 36.6–37.1; O2SAT 88–95
[2021-06-30 07:19] LABS: Absolute Lymphocyte Count 1.67 X10^3/uL (0.83-4.51); Absolute Neutrophil Count 6.2 X10^3/uL (2.0-7.7); Basophil# 0.03 X10^3/uL; Basophil% 0.3 % (0-1); Hematocrit 43.1 % (40-54); Hemoglobin 14.3 g/dL (13.0-16.5); Lymphocyte # 1.67 X10^3/ul (0.83-4.51); Lymphocyte % 18.9 % (19-41); Mean Corp Hgb Conc 33.2 g/dL (32-36); Mean Corpuscular Hgb 27.2 pg (27.0-32.0); Mean Corpuscular Volume 82.1 fL (80-94); Mean Platelet Vol. 11.8 fl (6.2-12.0); Monocyte# 0.81 X10^3/uL; Monocyte% 9.2 % (0-10); NRBC Flagged by Analyzer 0 % (0-5); Neutrophil # 6.22 X10^3/uL (2.7-7.7); Neutrophil % 70.6 % (47-70); Platelet Count 179 K/mm3 (150-450); RBC Distribution Width CV 13.2 % (11.6-14.6); RBC Distribution Width SD 39.7 fl (35.1-43.9); Red Blood Count 5.25 M/mm3 (4.6-6.2); White Blood Count 8.8 K/mm3 (4.4-11.0)
--- NOTE | 2021-06-30 08:21 | PN.HOSP_ITS ---
Subjective Subjective Patient remains on 9 to 10 L of oxygen. Short of breath with mild exertion. Intermittent low-grade fever T-max 99.3 Fahrenheit Objective Data Objective Data Vital Signs: Vital Signs Temp Pulse Resp BP Pulse Ox 98.0 F 70 22 H 112/71 92 06/30/21 05:24 06/30/21 05:24 06/30/21 05:24 06/30/21 05:24 06/30/21 07:42 Oxygen Flow Rate (L/min) 9 Oxygen Delivery Method Nasal Cannula Weight: 302 lb 0.533 oz Body Mass Index (BMI) 55.2 Intake & Output: Intake and Output for Last 24 Hours 06/28/21 06/29/21 06/30/21 23:59 23:59 23:59 Intake Total 1650 / 1650 350 / 350 Output Total 650 / 650 250 / 250 450 / 450 Balance 1000 / 1000 -250 / -250 -100 / -100 Lab / Micro Data Result Diagrams: 06/30/21 06:00 06/28/21 05:30 Labs: Laboratory Results - last 24 hr 06/30/21 06:00: WBC 8.8, RBC 5.25, Hgb 14.3, Hct 43.1, MCV 82.1, MCH 27.2, MCHC 33.2, RDW Std Deviation 39.7, RDW Coeff of Trell 13.2, Plt Count 179, MPV 11.8, Immature Gran % (Auto) 1.000 H, Neut % (Auto) 70.6 H, Lymph % (Auto) 18.9 L, [place] % (Auto) 9.2, Eos % (Auto) 0.0, Baso % (Auto) 0.3, Absolute Neuts (auto) 6.2, Absolute Lymphs (auto) 1.67, Nucleated RBC % 0 Physical Exam Narrative General: Alert, Oriented x3, Cooperative, BMI 55.2 kg/m? HEENT: Atraumatic, PERRLA, EOMI, Normocephalic Oral: No Gingival or Mucosal Lesions/ Ulcerations Neck: Supple, No JVD, Negative Carotid Bruits Lungs: Air entry severely diminished in bilateral lungs. Bilateral expiratory rhonchi. Severe hypoxia Cardiovascular: Regular rate, Regular Rhythm, Normal S1, Normal S2, No murmurs Abdomen: Bowel Sounds Present, Soft, Non Tender, Non-Distended : No renal angle tenderness. No suprapubic tenderness. Extremities: No edema, Capillary Refill Less than 3 Seconds Skin: No rashes, No breakdown Musculoskeletal: Surgical scar chandra over ankle region. Chronic. No Tenderness to Palpation of Joints or Extremities Neurological: Cranial nerves II-XII grossly intact, DTR 2+/4 and Symmetrical Psych/Mental Status: Flat affect. Assessment & Plan Assessment/Plan (1) Pneumonia due to COVID-19 virus: PLAN: 1. COVID-19 pneumonia-continue dexamethasone, patient is out of the window for remdesivir. Patient on 9 to 10 L of oxygen high flow. 06/30: Patient remains on high oxygen requirement. Encourage incentive spirometry, Pep and Mucinex. #2 acute hypoxic respiratory failure secondary to COVID-19 pneumonia continue mo nitoring pulse ox. #3 obstructive sleep apnea-patient appears to be on a CPAP setting of 10 cm, leonard beth understood that the patient was supposed to have somebody bring in his CPAP machine. #4 morbid obesity, BMI 55.2 PG per meter square. Will need to follow-up in obesity clinic as an outpatient to consider bariatric surgery Charges/Coding Visit Charges Inpatient E&M: 84605 Subs Hosp L2
[2021-06-30] MEDS: guaiFENesin 1,200 MG Tablet 1200 MG PO ×2 (09:50→20:28)
[2021-06-30] MEDS: dexAMETHasone 2 MG TABLET 6 MG PO (09:50)
[2021-06-30] MEDS: Propranolol LA 60 MG Capsule 120 MG PO (09:50)
[2021-06-30] MEDS: Enoxaparin 40 MG/0.4 ML Syringe SC ×2 (09:50→20:28)
[2021-06-30] MEDS: Pantoprazole Sodium 20 MG Tablet PO (09:51)
[2021-06-30] MEDS: Sertraline 50 MG Tablet 150 MG PO (09:51)
[2021-07-01 02:00] VITALS: BP 132/57; PULSE 75; RESP 18; TEMP 37.1; O2SAT 94
[2021-07-01 07:54] LABS: ALB/GLOB Ratio 0.7 RATIO (0.9-2.4); AST(SGOT) 61 U/L (15-37); Alanine Aminotransfer ALT/SGPT 102 U/L (16-61); Albumin, Serum 2.8 g/dL (3.2-5.0); Alkaline Phosphatase 77 U/L (45-117); Anion Gap 9 (5-15); BUN 27 mg/dL (7-18); BUN/Creat Ratio 47.5 RATIO (10-20); Calcium,Total 8.5 mg/dL (8.5-10.1); Chloride 110 mmol/L (98-107); Creatinine, Serum 0.57 mg/dL (0.70-1.30); EST Glomerular Filtration Rate 170 mL/min (>60); Est Glom Filt Rate - Afr Amer 206 mL/min (>60); Globulin 4.2 g/dL (2.2-4.2); Glucose 79 mg/dL (74-106); Potassium 3.7 mmol/L (3.5-5.1); Sodium Level 140 mmol/L (136-145)
--- NOTE | 2021-07-01 08:41 | PCM.PN.HOSP ---
Subjective Subjective Patient reports mild improvement in shortness of breath and cough. Sometimes he brings up phlegm. Objective Data Objective Data Vital Signs: Vital Signs Temp Pulse Resp BP Pulse Ox 98.7 F 75 18 132/57 H 94 07/01/21 02:00 07/01/21 02:00 07/01/21 02:00 07/01/21 02:00 07/01/21 02:00 Oxygen Flow Rate (L/min) 9 Oxygen Delivery Method CPAP Weight: 302 lb 0.533 oz Body Mass Index (BMI) 55.2 Intake & Output: Intake and Output for Last 24 Hours 06/29/21 06/30/21 07/01/21 23:59 23:59 23:59 Intake Total 1110 / 1110 Output Total 250 / 250 1000 / 1200 450 / 450 Balance -250 / -250 110 / -90 -450 / -450 Lab / Micro Data Result Diagrams: 06/30/21 06:00 07/01/21 06:15 Labs: Laboratory Results - last 24 hr 06/30/21 14:50: COVID-19 (ARTURO) Detected 07/01/21 06:15: Sodium 140, Potassium 3.7, Chloride 110 H, Carbon Dioxide 21.0, Anion Gap 9, BUN 27 H, Creatinine 0.57 L, Estim Creat Clear Calc 135.70, Est GFR (MDRD) Af Amer 206, Est GFR (MDRD) Non-Af 170, BUN/Creatinine Ratio 47.5 H, Glucose 79, Calcium 8.5, Total Bilirubin 0.50, AST 61 H, ALT 102 H, Alkaline Phosphatase 77, Total Protein 7.0, Albumin 2.8 L, Globulin 4.2, Albumin/Globulin Ratio 0.7 L Micro: Microbiology 06/27/21 18:35 Blood Culture (Wb) - Anticubital Right Blood Culture - Preliminary No growth in 48 hours. 06/27/21 17:10 Blood Culture (Wb) - Left Hand Blood Culture - Preliminary No growth in 48 hours. Physical Exam Narrative General: Alert, Oriented x3, Cooperative, BMI 55.2 kg/m? HEENT: Atraumatic, PERRLA, EOMI, Normocephalic Oral: No Gingival or Mucosal Lesions/ Ulcerations Neck: Supple, No JVD, Negative Carotid Bruits Lungs: Air entry severely diminished in bilateral lungs.No wheezing/crepitationSevere hypoxia Cardiovascular: Regular rate, Regular Rhythm, Normal S1, Normal S2, No murmurs Abdomen: Bowel Sounds Present, Soft, Non Tender, Non-Distended : No renal angle tenderness. No suprapubic tenderness. Extremities: No edema, Capillary Refill Less than 3 Seconds Skin: No rashes, No breakdown Musculoskeletal: Surgical scar chandra over ankle region,Chronic. Neurological: Cranial nerves II-XII grossly intact, DTR 2+/4 and Symmetrical Psych/Mental Status: Flat affect. Assessment & Plan Assessment/Plan (1) Pneumonia due to COVID-19 virus: PLAN: 1. COVID-19 pneumonia-continue dexamethasone, patient is out of the window for remdesivir. Patient on 9 to 10 L of oxygen high flow. 06/30: Patient remains on high oxygen requirement. Encourage incentive spirometry, Pep and Mucinex. 07/01: Patient On 9 L of oxygen. Continue same treatment.Shortness of breath and cough subjectively getting better. #2 acute hypoxic respiratory failure secondary to COVID-19 pneumonia continue monitoring pulse ox. #3 obstructive sleep apnea-patient appears to be on a CPAP setting of 10 cm, nursing understood that the patient was supposed to have somebody bring in his CPAP machine. #4 morbid obesity, BMI 55.2 PG per meter square. Will need to follow-up in obesity clinic as an outpatient to consider bariatric surgery Charges/Coding Visit Charges Inpatient E&M: 00458 Subs Hosp L2
[2021-07-01 09:17] VITALS: BP 98/56; PULSE 82; RESP 20; TEMP 36.9; O2SAT 94
[2021-07-01] MEDS: Pantoprazole Sodium 20 MG Tablet PO (09:21)
[2021-07-01] MEDS: Enoxaparin 40 MG/0.4 ML Syringe SC ×2 (09:21→20:20)
[2021-07-01] MEDS: dexAMETHasone 2 MG TABLET 6 MG PO (09:21)
[2021-07-01] MEDS: guaiFENesin 1,200 MG Tablet 1200 MG PO ×2 (09:21→20:21)
[2021-07-01] MEDS: Sertraline 50 MG Tablet 150 MG PO (09:21)
[2021-07-01] MEDS: Propranolol LA 60 MG Capsule 120 MG PO (09:22)
[2021-07-01 10:37] VITALS: BP 111/70; PULSE 81; RESP 18; TEMP 36.7; O2SAT 93
[2021-07-01 12:32] VITALS: O2SAT 93
[2021-07-01 16:57] VITALS: BP 126/66; PULSE 80; RESP 18; TEMP 36.9; O2SAT 93
[2021-07-01 20:17] VITALS: BP 131/60; PULSE 74; RESP 18; TEMP 36.7; O2SAT 92
[2021-07-01] MEDS: 0.9% Saline Lock 10 ML Syringe IV (20:20)
[2021-07-02 02:10] VITALS: BP 131/79; PULSE 63; RESP 18; TEMP 36.8; O2SAT 92
[2021-07-02 06:10] LABS: Absolute Neutrophil Count 6.2 X10^3/uL (2.0-7.7); Basophil# 0.05 X10^3/uL; Basophil% 0.6 % (0-1); Eosinophil# 0.02 X10^3/uL; Eosinophils% 0.2 % (0-5); Hematocrit 41.5 % (40-54); Hemoglobin 14.6 g/dL (13.0-16.5); Lymphocyte % 20.9 % (19-41); Mean Corp Hgb Conc 35.2 g/dL (32-36); Mean Corpuscular Volume 79.5 fL (80-94); Mean Platelet Vol. 10.9 fl (6.2-12.0); Monocyte# 0.79 X10^3/uL; Monocyte% 8.7 % (0-10); NRBC Flagged by Analyzer 0 % (0-5); Neutrophil % 68.2 % (47-70); Platelet Count 220 K/mm3 (150-450); RBC Distribution Width CV 12.6 % (11.6-14.6); RBC Distribution Width SD 35.8 fl (35.1-43.9); Red Blood Count 5.22 M/mm3 (4.6-6.2); White Blood Count 9.1 K/mm3 (4.4-11.0)
[2021-07-02 09:00] VITALS: BP 133/75; PULSE 89; RESP 18; TEMP 36.8; O2SAT 92
[2021-07-02] MEDS: dexAMETHasone 2 MG TABLET 6 MG PO (09:13)
[2021-07-02] MEDS: guaiFENesin 1,200 MG Tablet 1200 MG PO (09:14)
[2021-07-02] MEDS: Propranolol LA 60 MG Capsule 120 MG PO (09:14)
[2021-07-02] MEDS: Enoxaparin 40 MG/0.4 ML Syringe SC (09:14)
[2021-07-02] MEDS: Sertraline 50 MG Tablet 150 MG PO (09:14)
[2021-07-02] MEDS: Pantoprazole Sodium 20 MG Tablet PO (09:14)
--- NOTE | 2021-07-02 10:20 | PCM.DC ---
Discharge Instructions Diet Discharge Diet: Low fat / Low cholesterol and 2000 mg Sodium Diet Activity Discharge Activity: Return to Normal Activity Dressing / Incision Call your doctor if you observe: Fever of 101 or Higher, Coldness, Increased Pain, Numbness or Tingling, Change in Color, Inability to urinate, Inability to have a bowel movement, Shortness of breath, Dizziness, Fainting spells, Swelling in the ankles, Chest pain, Prolonged hiccupping, Increased palpitations (irregular heartbeat), Calf discomfort and Uncontrolled pain Follow Up Care Test Results: Test results from this visit will be discussed in further detail at your follow-up appointment, if applicable. Discharge Plan Admission Admit Date/Time: 06/27/21 22:18 Primary Reason for Your Visit: covid 19 pneumonia Attending Provider: Albert Alvarez Primary Care Provider: Kingston Goldberg Discharge Orders/Prescriptions Prescriptions: New Eliquis 2.5 mg tablet 2.5 mg PO BID Qty: 60 RF: 0 dexamethasone 6 mg tablet 6 mg PO DAILY Qty: 5 RF: 0 pseudoephedrine-guaifenesin [Mucinex D] 60-600 mg tablet extended release 12 hr 2 tab PO BID Qty: 30 RF: 0 Continued Adult Probiotic 3 billion cell capsule 3,000 mmu cells PO DAILY RF: 0 sertraline 100 MG tablet 150 mg PO DAILY RF: 0 omeprazole 20 MG capsule,delayed release(DR/EC) 20 mg PO DAILY RF: 0 propranolol 80 MG capsule,extended release 24 hr 100 mg PO DAILY Qty: 0 RF: 0 Held ibuprofen 800 MG tablet 800 mg PO TID PRN (Reason: Fever) RF: 0 Hold Instructions: Hold for 30 days while taking Eliquis to increase the chance of bleeding. Referrals / Follow Up: Kingston Goldberg MD [Primary Care Provider] - Within 1 Week Simi Chu NP, SR VICE PRESIDENT-C [Nurse Practitioner] - Within 2 Weeks (For COVID-19 pneumonia with obstructive sleep apnea. Morbid obesity) Disposition Disposition (needs filled in before D/C Order can be placed): Home, Self Care
--- NOTE | 2021-07-02 10:30 | DS.PCM_ITS ---
Providers Date of Admission: 06/27/21 Primary Care Physician: Dr. Kingston Goldberg MD Reason For Visit: ACUTE HYPOXIC RESP FAILURE 2NDARY TO COVID 19 Diagnosis Discharge Diagnosis (1) Pneumonia due to COVID-19 virus: Status: Acute Code(s): U07.1 - COVID-19; J12.82 - Pneumonia due to coronavirus disease 2019 Medications at Discharge Home Medications ibuprofen 800 mg PO TID PRN 02/08/19 omeprazole 20 mg PO DAILY 02/08/19 sertraline 150 mg PO DAILY 02/08/19 lactobacillus combination no.8 3 billion cell capsule 3,000 mmu cells PO DAILY 07/24/20 apixaban [Eliquis] 2.5 mg PO BID #60 tab 07/02/21 dexamethasone 6 mg PO DAILY #5 tab 07/02/21 propranolol 100 mg PO DAILY #0 cap 07/02/21 pseudoephedrine-guaifenesin [Mucinex D] 2 tab PO BID #30 tab 07/02/21 Hospital Course Summary of Care Provided Hospital Course: The patient is a 36-year-old male with history of restrictive lung disease, obstructive sleep apnea on home CPAP, cerebral palsy was admitted with progressive worsening of shortness of breath started on 06/17/2021. Home pulse ox was 86% on room air. [facility] 1. COVID-19 pneumonia-continue dexamethasone, patient is out of the window for remdesivir. Patient on 9 to 10 L of oxygen high flow. Patient was treated with incentive spirometry, Pep and Mucinex advised to continue at home. Prescription was given for Mucinex D, Eliquis and dexamethasone #2 acute hypoxic respiratory failure secondary to COVID-19 pneumonia continue monitoring pulse ox at home. Patient is ambulatory in home and in the community and requires home oxygen with portability. Patient requires 4 L of oxygen on ambulation and 3 L at rest. #3 obstructive sleep apnea-patient appears to be on a CPAP setting of 10 cm #4 morbid obesity, BMI 55.2 PG per meter square. Will need to follow-up in obesity clinic as an outpatient to consider bariatric surgery Discharge medication reconciliation done. Discharge follow-up instructions completed. Discharge process discussed with the patient and all questions were answered to patient's satisfaction. Total time spent, exact 35 minutes on discharge meds reconciliation, examination, coordination of care with nurses and ancillary staff, review of imaging and blood test and discussion with the patient on follow-up instructions Physical Exam Narrative Seen and examined. Patient has CPAP at home. General: Alert, Oriented x3, Cooperative, BMI 55.2 kg/m? HEENT: Atraumatic, PERRLA, EOMI, Normocephalic Oral: No Gingival or Mucosal Lesions/ Ulcerations Neck: Supple, No JVD, Negative Carotid Bruits Lungs: Air entry severely diminished in bilateral lungs.No whee zing/crepitation. Cardiovascular: Regular rate, Regular Rhythm, Normal S1, Normal S2, No murmurs Abdomen: Bowel Sounds Present, Soft, Non Tender, Non-Distended : No renal angle tenderness. No suprapubic tenderness. Extremities: No edema, Capillary Refill Less than 3 Seconds Skin: No rashes, No breakdown Musculoskeletal: Surgical scar chandra over ankle region,Chronic. Neurological: Cranial nerves II-XII grossly intact, DTR 2+/4 and Symmetrical Psych/Mental Status: Flat affect. Weight / BMI Weight Weight: 302 lb 0.533 oz Body Mass Index (BMI) 55.2 ABG / Lab / Microbiology Data Result Diagrams: 07/02/21 05:28 07/01/21 06:15 Laboratory: Laboratory Results - last 24 hr 07/02/21 05:28: WBC 9.1, RBC 5.22, Hgb 14.6, Hct 41.5, MCV 79.5 L, MCH 28.0, MCHC 35.2 D, RDW Std Deviation 35.8, RDW Coeff of Trell 12.6, Plt Count 220, MPV 10.9, Immature Gran % (Auto) 1.400 H, Neut % (Auto) 68.2, Lymph % (Auto) 20.9, [place] % (Auto) 8.7, Eos % (Auto) 0.2, Baso % (Auto) 0.6, Absolute Neuts (auto) 6.2, Absolute Lymphs (auto) 1.90, Nucleated RBC % 0 Microbiology: Microbiology 06/27/21 18:35 Blood Culture (Wb) - Anticubital Right Blood Culture - Preliminary No growth in 48 hours. 06/27/21 17:10 Blood Culture (Wb) - Left Hand Blood Culture - Preliminary No growth in 48 hours. D/C Instructions Discharge Diet: Low fat / Low cholesterol and 2000 mg Sodium Diet Call your doctor if you observe: Fever of 101 or Higher, Coldness, Increased Pain, Numbness or Tingling, Change in Color, Inability to urinate, Inability to have a bowel movement, Shortness of breath, Dizziness, Fainting spells, Swelling in the ankles, Chest pain, Prolonged hiccupping, Increased palpitations (irregular heartbeat), Calf discomfort and Uncontrolled pain Meaningful Use Info Meaningful Use Diagnoses (Choose all that apply): None applicable Discharge Plan Admission Admit Date/Time: 06/27/21 22:18 Primary Reason for Your Visit: covid 19 pneumonia Attending Provider: Albert Alvarez Primary Care Provider: Kingston Goldberg Discharge Orders/Prescriptions Prescriptions: New Eliquis 2.5 mg tablet 2.5 mg PO BID Qty: 60 RF: 0 dexamethasone 6 mg tablet 6 mg PO DAILY Qty: 5 RF: 0 pseudoephedrine-guaifenesin [Mucinex D] 60-600 mg tablet extended release 12 hr 2 tab PO BID Qty: 30 RF: 0 Continued Adult Probiotic 3 billion cell capsule 3,000 mmu cells PO DAILY RF: 0 sertraline 100 MG tablet 150 mg PO DAILY RF: 0 omeprazole 20 MG capsule,delayed release(DR/EC) 20 mg PO DAILY RF: 0 propranolol 80 MG capsule,extended release 24 hr 100 mg PO DAILY Qty: 0 RF: 0 Held ibuprofen 800 MG tablet 800 mg PO TID PRN (Reason: Fever) RF: 0 Hold Instructions: Hold for 30 days while taking Eliquis to increase the chance of bleeding. Referrals / Follow Up: Kingston Goldberg MD [Primary Care Provider] - Within 1 Week Simi Chu NP, FLOWER MACHINE OPERATOR-C [Nurse Practitioner] - Within 2 Weeks (For COVID-19 pneumonia with obstructive sleep apnea. Morbid obesity) Disposition Disposition (needs filled in before D/C Order can be placed): Home, Self Care Charges/Coding Visit Charges Inpatient E&M: 92253 Disch Hosp
[2021-07-02 10:32] VITALS: O2SAT 88; O2SAT 91
[2021-07-02 10:33] VITALS: O2SAT 94
--- NOTE | 2021-07-02 11:30 | CASEMGMT ---
Addendum entered by Vangie Zeng 07/02/21 12:10: Pt qualifies for home O2. Referal faxed to [facility]. TC to [facility], referral received. They are aware that portable tank needs to be delivered to hospital nursing unit. No ETA given. Original Note: [facility] contacted regarding cost of Eliquis Rx. Per pharmacy staff, no charge for patient, medication covered by insurance.
[2021-07-02 17:57] VITALS: BP 132/76; PULSE 72; RESP 18; TEMP 36.1; O2SAT 95
== END 2021-07-02 17:40 | disposition home or self-care (01) | DRG 137 ==
LOC: ED 21:25 → MS3 22:39
PROVIDERS: Admitting Provider Hospitalist; Emergency Provider Emergency Medicine; PCP Family Medicine; Visit Provider Internal Medicine
DX: U07.1 COVID-19 (principal); J12.82 Pneumonia due to coronavirus disease 2019; J96.01 Acute respiratory failure with hypoxia; G47.33 Obstructive sleep apnea (adult) (pediatric); G80.9 Cerebral palsy, unspecified; K21.9 Gastro-esophageal reflux disease without esophagitis; F32.A Depression, unspecified; F41.9 Anxiety disorder, unspecified; K58.9 Irritable bowel syndrome, unspecified; E66.01 Morbid (severe) obesity due to excess calories; F17.200 Nicotine dependence, unspecified, uncomplicated; Z68.43 Body mass index [BMI] 50.0-59.9, adult; Z79.899 Other long term (current) drug therapy
CPT/HCPCS: 36415; 71045; 80053; 83605; 84484; 85025; 87040; 87635; 93005; 94640; 94664; 94667; 94668; 94762; 99285; 99406; U0005; A4216; U0003